=== PATIENT | female | born 1980 | race African-American/Black ===

== ENCOUNTER 2016-10-16 12:11 | Emergency (ER) | payer SELFPAY ==
[~2016-10-16] VITALS: Ht 170.2 cm; Wt 77.6 kg
[~2016-10-16 12:11] MED LIST: AZITHROMYCIN250 MG ORAL; BENADRYL ALLERG25 M1 PO; FLONASE ALLERG9.9 ML NS; HYDROCHLOROTH12.5 M2 ORAL; NITROFURANTOIN100 M2 ORAL
[2016-10-16] MEDS ORDERED: NKM (12:39)
[2016-10-16] MEDS ORDERED: DiphenhydrAMINE 50mg/ml Inj IVP ONE (13:00)
[2016-10-16] MEDS ORDERED: Metoclopramide 10mg/2ml Inj IVP ONE (13:00)
[2016-10-16] MEDS ORDERED: Thiamine HCl 100 MG in D5W 55 ML IVPB SCH (13:00)
[2016-10-16] MEDS ORDERED: Thiamine HCl 100mg/ml Inj ONE (13:12)
[2016-10-16 13:15] VITALS: BP 159/97
[2016-10-16 13:22] LABS: APPEARANCE,URINE CLOUDY; KETONES,URINE NEGATIVE (NEGATIVE); LEUKOCYTE ESTERASE ,URINE NEGATIVE (NEGATIVE); NITRITE,URINE NEGATIVE (NEGATIVE); PH,URINE 8 (4.5-8.0); PROTEIN,URINE 1+ (NEGATIVE); UROBILINOGEN,URINE NORMAL MG/DL (0.0-1.0)
[2016-10-16 13:23] LABS: BASOPHILS % (AUTO) 0.9 % (0.0-2.0); EOSINOPHILS % (AUTO) 0.9 % (0.0-3.0); MEAN CORPUSCULAR HEMOGLOBIN 30.9 PG (27.0-31.0); MEAN CORPUSCULAR HGB CONC 33.2 G/DL (32.0-36.0); MEAN CORPUSCULAR VOLUME 93 FL (80-99); MEAN PLATELET VOLUME 9.3 FL (6.5-10.1); MONOCYTES % (AUTO) 3.8 % (1.0-10.0); NEUTROPHILS % (AUTO) 77.3 % (45.0-75.0); PLATELET COUNT 248 K/UL (150-450); RED BLOOD COUNT 4.61 M/UL (4.20-5.40); RED CELL DISTRIBUTION WIDTH 11.1 % (11.6-14.8); WHITE BLOOD COUNT 8.2 K/UL (4.8-10.8)
[2016-10-16 13:41] LABS: ALANINE AMINOTRANSFERASE 10 U/L (3-33); ALBUMIN/GLOBULIN RATIO 1.4 (1.0-2.7); ANION GAP 19 (5-15); ASPARTATE AMINO TRANSFERASE 14 U/L (5-40); CALCIUM 9.2 mg/dL (8.6-10.2); CARBON DIOXIDE 23 mEQ/L (20-30); CHLORIDE 98 mEQ/L (98-107); CREATININE 0.7 mg/dL (0.5-0.9); GLOMERULAR FILTRATION RATE > 60 mL/min (>60); HEMOLYSIS 3; LIPASE 16 U/L (< 60); POTASSIUM 3.7 mEQ/L (3.4-4.9); SODIUM 140 mEQ/L (135-145); TOTAL PROTEIN 8.1 g/dL (6.6-8.7)
[2016-10-16 14:02] LABS: BACTERIA,URINE FEW /HPF; SQUAMOUS EPITHELIAL CELL,UR MODERATE /LPF (NONE/OCC); WBC,URINE 0-2 /HPF (0 - 2)
[2016-10-16 14:03] LABS: AMORPHOUS SEDIMENT,UR MANY /LPF
[2016-10-16] MEDS ORDERED: ZOFRAN ODT4 MG ORAL (14:20)
[2016-10-16] MEDS ORDERED: PEPCID20 MG ORAL (14:20)
[2016-10-16 15:15] VITALS: BP 118/76
--- NOTE | 2016-10-16 20:08 | Emergency Room Report ---
History of Present Illness General Chief Complaint: Vomiting Source: Patient Present Illness HPI Patient presents with vomiting and headache. Diffuse 9/10, pounding. Unable to keep down fluids. No medicine taken. Drank cocktails last night (not unusual for her). Might have vomited a scant amount of blood this am, now clear. Strange feeling in stomach. No fevers. This morning she felt so weak that she had difficulty walking. The patient said he had a headache like this before. It sounds most severe headache that she's ever had. She denies any lateralizing weakness, numbness. change in vision. She denies any sore throat, dyspnea, chest pain. Her periods are irregular and sparse because she's has an IUD. She does not believe she is . There is no abdominal pain per se but she does feel strange feeling in her stomach. No family history of brain bleeds. Patient not hypertensive. Allergies: Coded Allergies: No Known Allergies (Unverified , 06/15/14) Patient History Past Medical History: see triage record Social History: Reports: alcohol use, Denies: smoking Social History Narrative eusebia, brought by son Last Menstrual Period: unk, IUD Reviewed Nursing Documentation: PMH: Agreed, PSxH: Agreed Nursing Documentation-PMH Past Medical History: No History, Except For Hx Hypertension: Yes Hx Asthma: Yes Review of Systems All Other Systems: negative except mentioned in HPI Physical Exam Vital Signs Date Time Temp Pulse Resp B/P Pulse Ox O2 Delivery O2 Flow Rate FiO2 10/16/16 12:36 97.2 82 16 149/95 100 Room Air Sp02 EP Interpretation: reviewed, normal General Appearance: well appearing, no apparent distress, GCS 15 Head: normocephalic, atraumatic Eyes: bilateral eye PERRL, bilateral eye normal inspection ENT: moist mucus membranes Neck: full range of motion, supple Respiratory: lungs clear, normal breath sounds Cardiovascular #1: regular rate, rhythm Cardiovascular #2: 2+ radial (R) Gastrointestinal: normal inspection, normal bowel sounds, non tender, no mass, non-distended Musculoskeletal: back normal, gait/station normal, normal range of motion Neurologic: alert, oriented x3, motor strength/tone normal, DTRs symmetric, sensory intact, cerebellar normal, speech normal Skin: normal inspection, warm/dry Medical Decision Making Diagnostic Impression: Primary Impression: Headache Qualified Codes: R51 - Headache Additional Impression: vomiting ER Course The patient presents with headache and vomiting. Differential includes migraine , a cholesterol, electrolyte abnormality, subarachnoid bleeds, tension headache , amongst others. The patient feels generalized weakness there are no lateralizing findings. The patient does be treated with IV hydration, Zofran , thiamine and also will be given Reglan and Benadryl. She'll be observed and a repeat neurologic exam will be performed. If the patient is not improved a CT scan will be ordered. Labs essentially normal. Patient with 2-3/10 MCDONALD, feels much better. Tolerating PO fluids. Patient stable for outpatient observation and treatment. Laboratory Tests Test 10/16/16 13:05 White Blood Count 8.2 K/UL (4.8-10.8) Red Blood Count 4.61 M/UL (4.20-5.40) Hemoglobin 14.2 G/DL (12.0-16.0) Hematocrit 42.9 % (37.0-47.0) Mean Corpuscular Volume 93 FL (80-99) Mean Corpuscular Hemoglobin 30.9 PG (27.0-31.0) Mean Corpuscular Hemoglobin Concent 33.2 G/DL (32.0-36.0) Red Cell Distribution Width 11.1 % (11.6-14.8) L Platelet Count 248 K/UL (150-450) Mean Platelet Volume 9.3 FL (6.5-10.1) Neutrophils (%) (Auto) 77.3 % (45.0-75.0) H Lymphocytes (%) (Auto) 17.0 % (20.0-45.0) L Monocytes (%) (Auto) 3.8 % (1.0-10.0) Eosinophils (%) (Auto) 0.9 % (0.0-3.0) Basophils (%) (Auto) 0.9 % (0.0-2.0) Urine Color Yellow Urine Appearance Cloudy Urine pH 8 (4.5-8.0) Urine Specific [place] 1.010 (1.005-1.035) Urine Protein 1+ (NEGATIVE) H Urine Glucose (UA) Negative (NEGATIVE) Urine Ketones Negative (NEGATIVE) Urine Occult Blood 2+ (NEGATIVE) H Urine Nitrite Negative (NEGATIVE) Urine Bilirubin Negative (NEGATIVE) Urine Urobilinogen Normal MG/DL (0.0-1.0) Urine Leukocyte Esterase Negative (NEGATIVE) Urine RBC 2-4 /HPF (0 - 2) H Urine WBC 0-2 /HPF (0 - 2) Urine Squamous Epithelial Cells Moderate /LPF (NONE/OCC) H Urine Amorphous Sediment Many /LPF (NONE) H Urine Bacteria Few /HPF (NONE) Urine HCG, Qualitative Negative Sodium Level 140 mEQ/L (135-145) Potassium Level 3.7 mEQ/L (3.4-4.9) Chloride Level 98 mEQ/L (98-107) Carbon Dioxide Level 23 mEQ/L (20-30) Anion Gap 19 (5-15) H Blood Urea Nitrogen 8 mg/dL (7-23) Creatinine 0.7 mg/dL (0.5-0.9) Estimate Glomerular Filtration Rate > 60 mL/min (>60) Glucose Level 111 mg/dL (74-106) H Calcium Level 9.2 mg/dL (8.6-10.2) Total Bilirubin 0.4 mg/dL (0.0-1.2) Aspartate Amino Transferase (AST) 14 U/L (5-40) Alanine Aminotransferase (ALT) 10 U/L (3-33) Alkaline Phosphatase 67 U/L (35-104) Total Protein 8.1 g/dL (6.6-8.7) Albumin 4.8 g/dL (3.5-5.2) Globulin 3.3 g/dL Albumin/Globulin Ratio 1.4 (1.0-2.7) Lipase 16 U/L (< 60) Urine Opiates Screen Negative (NEGATIVE) Urine Barbiturates Screen Negative (NEGATIVE) Phencyclidine (PCP) Screen Negative (NEGATIVE) Urine Amphetamines Screen Negative (NEGATIVE) Urine Benzodiazepines Screen Negative (NEGATIVE) Urine Cocaine Screen Negative (NEGATIVE) Urine Marijuana (THC) Screen Positive (NEGATIVE) H Last Vital Signs Date Time Temp Pulse Resp B/P Pulse Ox O2 Delivery O2 Flow Rate FiO2 10/16/16 15:15 78 14 118/76 98 Room Air 10/16/16 13:15 97.5 Status: improved Reevaluation Impression Last Vital Signs Date Time Temp Pulse Resp B/P Pulse Ox O2 Delivery O2 Flow Rate FiO2 10/16/16 15:15 78 14 118/76 98 Room Air 10/16/16 13:15 97.5 Disposition: HOME, SELF-CARE Condition: Improved Scripts Famotidine (PEPCID) 20 Mg Tablet 20 MG ORAL DAILY, #14 TAB 0 Refills Prov: Jamar Kenny M.D. 10/16/16 Ondansetron Odt* (ZOFRAN ODT*) 4 Mg Tab.rapdis 4 MG ORAL Q8H Y for Nausea & Vomiting, #6 TAB 0 Refills Prov: Jamar Kenny M.D. 10/16/16 Departure Forms: Return to Work Return to Work in (Days): 1 Return to Work Date: Oct 17, 2016 Patient Instructions: Nausea and Vomiting, Adult Additional Instructions: Beware of any alcohol. No aspirin, advil, aleve, alkaselzer, peptobismol or alcohol. Tylenol and [place]. Jamar Kenny M.D. Oct 16, 2016 20:08
== END 2016-10-16 15:19 | disposition home or self-care (01) ==
LOC: EMR 12:55
DX: R51 Headache (principal); R11.10 Vomiting, unspecified; I10 Essential (primary) hypertension; J45.909 Unspecified asthma, uncomplicated; F10.10 Alcohol abuse, uncomplicated
CPT/HCPCS: 36415; 80053; 80300; 81003; 81025; 83690; 85025; 96360; 96361; 96374; 96375; 99284; J1200; J2405; J2765

== ENCOUNTER 2016-11-12 17:23 | Emergency (ER) | payer SELFPAY ==
[~2016-11-12] VITALS: Ht 170.2 cm; Wt 80.7 kg
[~2016-11-12 17:23] MED LIST changes: +NKM; +PEPCID20 MG ORAL; +ZOFRAN ODT4 MG ORAL
[2016-11-12 17:54] VITALS: BP 129/84
[2016-11-12] MEDS: DiphenhydrAMINE 50mg/ml Inj IM ONE ×2 (18:42→18:55)
[2016-11-12] MEDS: Metoclopramide 10mg/2ml Inj IM ONE ×2 (18:42→18:55)
[2016-11-12] MEDS: Ketorolac 60mg Inj IM ONE ×2 (18:42→18:56)
[2016-11-12] MEDS ORDERED: IBUPROFEN600 MG ORAL (19:05)
[2016-11-12 19:17] VITALS: BP 124/80
[2016-11-12 19:18] VITALS: BP 124/80
--- NOTE | 2016-11-12 20:47 | Emergency Room Report ---
History of Present Illness General Chief Complaint: General Complaint Source: Patient Present Illness [facility] The patient is a 35-year-old female presenting for possible hypertension and headache which began last night. Pain is described as an 8/10 dull ache to the temples of the head. Pain does not radiate. Pain is worse with touch and movement. The patient does admit to history of headaches and this feels similar. The patient also admits to increased stress over the past week. The patient states that she went to a [facility] to have her blood pressure checked in readings were 168 systolic. The patient states that she had been diagnosed with hypertension in the past but stopped taking her blood pressure medications one year prior. The patient does have a blood pressure machine at home and numbers are usually within normal limits. Patient denies any other symptoms including nausea, vomiting, fever, chills, dizziness, blurred vision, chest pain, shortness of breath, weakness, diaphoresis, neck pain or stiffness Allergies: Coded Allergies: No Known Allergies (Unverified , 06/15/14) Patient History Past Medical History: see triage record Pertinent Family History: none Last Menstrual Period: IUD Now: No : 5 Para: 3 Reviewed Nursing Documentation: PMH: Agreed, PSxH: Agreed Nursing Documentation-PMH Hx Hypertension: Yes Hx Asthma: Yes Review of Systems All Other Systems: negative except mentioned in HPI Physical Exam Vital Signs Date Time Temp Pulse Resp B/P Pulse Ox O2 Delivery O2 Flow Rate FiO2 11/12/16 17:42 99.5 85 16 129/84 100 Room Air Sp02 EP Interpretation: reviewed, normal General Appearance: no apparent distress, alert, GCS 15, non-toxic Head: normocephalic, atraumatic Eyes: bilateral eye PERRL, bilateral eye normal inspection ENT: hearing grossly normal, normal pharynx, no angioedema, normal voice Respiratory: chest non-tender, lungs clear, normal breath sounds, no wheezing, speaking full sentences Cardiovascular #1: regular rate, rhythm, no edema Musculoskeletal: back normal, gait/station normal, normal range of motion, non- tender Neurologic: alert, oriented x3, responsive, motor strength/tone normal, sensory intact, speech normal Psychiatric: judgement/insight normal, memory normal, mood/affect normal, no suicidal/homicidal ideation Skin: normal color, no rash, warm/dry, well hydrated Lymphatic: no adenopathy Medical Decision Making PA Attestation Dr. Porter is my supervising physician. Patient management was discussed with my supervising physician Diagnostic Impression: Primary Impression: Headache ER Course The patient is a 35-year-old female presenting for possible hypertension and headache which began last night Differential diagnoses include but not limited to Migraine, tension headache, essential HTN, HTN urgency vitals WNL. NAD PE: No apparent distress. A&Ox4 HEENT: PERRL. EOMI. Normal mentation. RRR. No MRG Lungs CTA bilat Skin is warm and dry, no rashes. Otherwise exam unremarkable. Pt is offered Toradol, reglan, Benadryl but refuses Blood pressure is rechecked and is slightly elevated. The patient is given Motrin for pain Patient will be discharged home with a prescription for Motrin and will followup with PMD. Patient is advised she needs to keep a blood pressure journal. ER precautions Last Vital Signs Date Time Temp Pulse Resp B/P Pulse Ox O2 Delivery O2 Flow Rate FiO2 11/12/16 19:18 80 18 124/80 99 Room Air 11/12/16 19:17 99.0 Status: improved Disposition: HOME, SELF-CARE Condition: Improved Scripts Ibuprofen* (MOTRIN*) 600 Mg Tablet 600 MG ORAL Q8H Y for For Pain, #30 TAB 0 Refills Prov: BALDEV ESTEVEZ 11/12/16 Referrals: NOT CHOSEN IPA/,REFERRING (PCP) Patient Instructions: General Headache Without Cause Additional Instructions: I discussed my findings with the patient. All questions and concerns have been answered. Treatment and medication compliance have been addressed. I advised the patient that they need to follow up with PMD in 3-5 days. Return to ED if symptoms worsen, new symptoms arise, or if needed for any reason. Patient verbalized understanding of discharge instructions. The patient will keep a blood pressure journal as discussed and will see here primary doctor as soon as possible. BALDEV ESTEVEZ Nov 12, 2016 20:47
== END 2016-11-12 19:22 | disposition home or self-care (01) ==
LOC: EMR 18:15
DX: R51 Headache (principal); I10 Essential (primary) hypertension; Z97.5 Presence of (intrauterine) contraceptive device; J45.909 Unspecified asthma, uncomplicated
CPT/HCPCS: 99283

== ENCOUNTER 2017-05-04 16:06 | Emergency (ER) | payer SELFPAY ==
[~2017-05-04] VITALS: Ht 170.2 cm; Wt 74.4 kg
[~2017-05-04 16:06] MED LIST changes: +IBUPROFEN600 MG ORAL
[2017-05-04 16:15] VITALS: BP 201/116
[2017-05-04] MEDS ORDERED: Penicillin Vk 250mg tab ORAL ONE (16:30)
[2017-05-04] MEDS ORDERED: Morphine Sulfate 4mg/ml Inj IM ONE (16:30)
[2017-05-04] MEDS ORDERED: TRAMADOL HCL50 MG ORAL (16:48)
[2017-05-04] MEDS ORDERED: PENICILLIN V P250 MG PO (16:48)
[2017-05-04 16:55] VITALS: BP 146/85
--- NOTE | 2017-05-04 17:08 | Emergency Room Report ---
History of Present Illness General Chief Complaint: Toothache Source: Patient Present Illness HPI The patient is a 36-year-old female presenting for dental pain. She states that she first noticed pain around the left lower teeth one week prior which has been increasing and is now a 10 out of 10 dull ache. Worse with touch. Pain does not radiate. She states that last dental appointment was one year prior. She denies any other symptoms including N, V, F, chills, rash, MCDONALD, blurred vision, sore throat Allergies: Coded Allergies: No Known Allergies (Unverified , 06/15/14) Patient History Past Medical History: see triage record Pertinent Family History: none Last Menstrual Period: 04/27/17 Now: No Reviewed Nursing Documentation: PMH: Agreed, PSxH: Agreed Nursing Documentation-PMH Hx Hypertension: Yes Hx Asthma: Yes Review of Systems All Other Systems: negative except mentioned in HPI Physical Exam Vital Signs Date Time Temp Pulse Resp B/P (MAP) Pulse Ox O2 Delivery O2 Flow Rate FiO2 05/04/17 16:15 99.5 76 15 201/116 95 Room Air Sp02 EP Interpretation: reviewed, normal General Appearance: no apparent distress, alert, GCS 15, non-toxic Head: normocephalic, atraumatic Eyes: bilateral eye normal inspection, bilateral eye PERRL ENT: hearing grossly normal, normal pharynx, no angioedema, normal voice, other - TTP over the L molar Neck: full range of motion, supple/symm/no masses Musculoskeletal: back normal, gait/station normal, normal range of motion, non- tender Neurologic: alert, oriented x3, responsive, motor strength/tone normal, sensory intact, speech normal Psychiatric: judgement/insight normal, memory normal, mood/affect normal, no suicidal/homicidal ideation Skin: normal color, no rash, warm/dry, well hydrated Lymphatic: no adenopathy Medical Decision Making PA Attestation Dr. may is my supervising physician. Patient management was discussed with my supervising physician Diagnostic Impression: Primary Impression: Dental infection ER Course The patient is a 36-year-old female presenting for dental pain. Diagnoses considered but not limited to: Dental caries, dental infection/abscess , gingivitis, [employer], among others PE: afebrile. NAD HEENT: No facial edema. Diffuse poor dentition with obvious caries. TTP over the L lower molar. No abscess. No fluctuance. No TTP over the mastoid. The patient is given antibiotics and pain medication and will be DC'ed with the same. ER precautions given. She will FU with dentist. Last Vital Signs Date Time Temp Pulse Resp B/P (MAP) Pulse Ox O2 Delivery O2 Flow Rate FiO2 05/04/17 16:55 99.5 54 16 146/85 98 Room Air Status: improved Disposition: HOME, SELF-CARE Condition: Improved Scripts Penicillin V Potassium (Penicillin V Potassium) 250 Mg Tablet 250 MG PO Q6H, #28 TAB 0 Refills Prov: BALDEV ESTEVEZ 05/04/17 Tramadol Hcl* (ULTRAM*) 50 Mg Tablet 50 MG ORAL Q6H Y for For Pain, #10 TAB 0 Refills Prov: BALDEV ESTEVEZ. 05/04/17 Patient Instructions: Dental Pain Additional Instructions: I discussed my findings with the patient. All questions and concerns have been answered. Treatment and medication compliance have been addressed. I advised the patient that they need to follow up with PMD in 3-5 days. Return to ED if symptoms worsen, new symptoms arise, or if needed for any reason. Patient verbalized understanding of discharge instructions. The patient will follow up with dentist as soon as possible BALDEV ESTEVEZ May 04, 2017 17:08
== END 2017-05-04 16:55 | disposition home or self-care (01) ==
LOC: EMR 16:20
DX: K04.7 Periapical abscess without sinus (principal); J45.909 Unspecified asthma, uncomplicated; I10 Essential (primary) hypertension
CPT/HCPCS: 96372; 99284; J2270; C9399

== ENCOUNTER 2017-05-07 16:09 | Emergency (ER) | payer SELFPAY ==
[~2017-05-07] VITALS: Ht 170.2 cm; Wt 70.3 kg
[~2017-05-07 16:09] MED LIST changes: +PENICILLIN V P250 MG PO; +TRAMADOL HCL50 MG ORAL
[2017-05-07] MEDS ORDERED: Ketorolac 60mg Inj IM ONE (16:30)
[2017-05-07] MEDS ORDERED: Norco 5mg/325mg tab ORAL ONE (16:30)
[2017-05-07] MEDS ORDERED: TRAMADOL HCL50 MG ORAL (16:58)
[2017-05-07 17:03] VITALS: BP 149/88
--- NOTE | 2017-05-07 18:49 | Emergency Room Report ---
History of Present Illness General Chief Complaint: Toothache Present Illness HPI The patient is a 36-year-old female presenting for dental pain. She was seen in this emergency department this prior for the same complaint. She was diagnosed with dental infection and given amoxicillin as well as tramadol. She states that the tramadol ran out and the pain has returned. She states that she has an appointment to see dentist tomorrow. Pain is a 10 out of 10 dull ache to the left lower jaw and does not radiate. Worse with chewing. She denies any other symptoms including nausea, vomiting, fever, chills Allergies: Coded Allergies: No Known Allergies (Unverified , 06/15/14) Patient History Past Medical History: see triage record Pertinent Family History: none Reviewed Nursing Documentation: PMH: Agreed, PSxH: Agreed Nursing Documentation-PMH Hx Hypertension: Yes Hx Asthma: Yes Review of Systems All Other Systems: negative except mentioned in HPI Physical Exam Vital Signs Date Time Temp Pulse Resp B/P (MAP) Pulse Ox O2 Delivery O2 Flow Rate FiO2 05/07/17 16:15 98.1 83 20 170/90 99 Room Air Sp02 EP Interpretation: reviewed, normal General Appearance: no apparent distress, alert, GCS 15, non-toxic Head: normocephalic, atraumatic Eyes: bilateral eye normal inspection, bilateral eye PERRL ENT: hearing grossly normal, normal pharynx, no angioedema, normal voice, uvula midline, other - L molar TTP Neck: full range of motion, supple/symm/no masses Respiratory: chest non-tender, lungs clear, normal breath sounds, speaking full sentences Musculoskeletal: back normal, gait/station normal, normal range of motion, non- tender Neurologic: alert, oriented x3, responsive, motor strength/tone normal, sensory intact, speech normal Psychiatric: judgement/insight normal, memory normal, mood/affect normal, no suicidal/homicidal ideation Skin: normal color, no rash, warm/dry, well hydrated Lymphatic: no adenopathy Medical Decision Making PA Attestation Dr. Ball is my supervising physician. Patient management was discussed with my supervising physician Diagnostic Impression: Primary Impression: Pain, dental ER Course The patient is a 36-year-old female presenting for dental pain. Diagnoses considered but not limited to: Dental arnie, dental abscess, toothache , gingivitis Physical exam reveals tenderness to palpation over the left molar as before. No active signs of infection. The patient is given limited prescription for tramadol and needs to followup with dentist tomorrow as she said. ER precautions are given Last Vital Signs Date Time Temp Pulse Resp B/P (MAP) Pulse Ox O2 Delivery O2 Flow Rate FiO2 05/07/17 17:03 98.1 83 20 149/88 99 Room Air Status: improved Disposition: HOME, SELF-CARE Condition: Improved Scripts Tramadol Hcl* (ULTRAM*) 50 Mg Tablet 50 MG ORAL Q6H Y for For Pain, #10 TAB 0 Refills Prov: BALDEV ESTEVEZ 05/07/17 Referrals: NOT CHOSEN IPA/,REFERRING (PCP) Patient Instructions: Dental Pain Additional Instructions: I discussed my findings with the patient. All questions and concerns have been answered. Treatment and medication compliance have been addressed. The patient has appointment with dentist tomorrow. Return to ED if symptoms worsen, new symptoms arise, or if needed for any reason. Patient verbalized understanding of discharge instructions. BALDVE ESTEVEZ May 07, 2017 18:49
== END 2017-05-07 17:04 | disposition home or self-care (01) ==
LOC: EMR 16:45
DX: K08.89 Other specified disorders of teeth and supporting structures (principal); I10 Essential (primary) hypertension; J45.909 Unspecified asthma, uncomplicated
CPT/HCPCS: 96372; 99284

== ENCOUNTER 2017-05-12 21:04 | Emergency (ER) | payer SELFPAY ==
[~2017-05-12] VITALS: Ht 170.2 cm; Wt 73.5 kg
[2017-05-12 21:30] VITALS: BP 180/98
[2017-05-12] MEDS ORDERED: Lidocaine 1% Plain 30 ml INJ ONE (21:45)
[2017-05-12] MEDS ORDERED: HYDROCODON-ACE1 EA15 ORAL (21:59)
[2017-05-12] MEDS ORDERED: Norco 5mg/325mg tab ORAL ONE (22:00)
--- NOTE | 2017-05-12 22:00 | Emergency Room Report ---
History of Present Illness General Chief Complaint: Toothache Source: Patient Present Illness HPI This is a 36-year-old female with poor dentition. She presents with chief complaint of dental pain and headache. She was here twice for the same thing. She saw her dentist who placed her on Tylenol and clindamycin. She was referred to an oral surgeon. Her appointment won't be until next . She denies any fever or chills. Pain is 9/10. Localized to the left upper cheek. Radiate to her head and face. No nausea no vomiting. Worse with eating. Allergies: Coded Allergies: No Known Allergies (Unverified , 06/15/14) Patient History Past Medical History: see triage record, old chart reviewed Past Surgical History: other Pertinent Family History: none Social History: Denies: smoking Now: No Immunizations: other Reviewed Nursing Documentation: PMH: Agreed, PSxH: Agreed Nursing Documentation-PMH Past Medical History: No History, Except For Hx Hypertension: Yes Hx Asthma: Yes Review of Systems Eye: Denies: eye pain, blurred vision ENT: Denies: ear pain, nose congestion, throat swelling Respiratory: Denies: cough, shortness of breath Cardiovascular: Denies: chest pain, palpitations Gastrointestinal: Denies: abdominal pain, diarrhea, nausea, vomiting Musculoskeletal: Denies: back pain, joint pain Skin: Denies: rash Neurological: Denies: headache, numbness Endocrine: Denies: increased thirst, increased urine Hematologic/Lymphatic: Denies: easy bruising All Other Systems: negative except mentioned in HPI Physical Exam Vital Signs Date Time Temp Pulse Resp B/P (MAP) Pulse Ox O2 Delivery O2 Flow Rate FiO2 05/12/17 21:21 98.4 93 22 180/98 99 Room Air vitals with high blood pressure Sp02 EP Interpretation: reviewed, normal General Appearance: well appearing, no apparent distress, alert Head: normocephalic, atraumatic Eyes: bilateral eye PERRL, bilateral eye EOMI ENT: hearing grossly normal, other - Poor dentition. Her molars are decayed to the nubs. No abscess. Percussive tenderness. Neck: full range of motion, supple, no meningismus Respiratory: chest non-tender, lungs clear, normal breath sounds Cardiovascular #1: regular rate, rhythm, no murmur Gastrointestinal: normal bowel sounds, non tender, no mass, no organomegaly, no bruit, non-distended Musculoskeletal: back normal, gait/station normal, normal range of motion Psychiatric: mood/affect normal Skin: warm/dry Medical Decision Making Diagnostic Impression: Primary Impression: Toothache Additional Impression: Dental abscess ER Course Patient presents with dental pain. No evidence of deep abscess that can be I& D. No facial swelling. We'll discharge home. Last Vital Signs Date Time Temp Pulse Resp B/P (MAP) Pulse Ox O2 Delivery O2 Flow Rate FiO2 05/12/17 21:21 98.4 93 22 180/98 99 Room Air Status: improved Disposition: HOME, SELF-CARE Condition: Stable Scripts Hydrocodone/Acetaminophen 5-325* (HYDROCODONE/ACETAMINOPHEN 5-325*) 1 Each Tablet 1 TAB ORAL Q6H Y for For Pain, #30 TAB 0 Refills Prov: GABY HUMPHREY M.D. 05/12/17 Patient Instructions: Dental Pain Additional Instructions: Followup with your surgeon as scheduled. Stop the Tylenol if you are taking [place]. Return for facial swelling or if symptom worsen. GABY HUMPHREY M.D. May 12, 2017 22:00
[2017-05-12 22:12] VITALS: BP 156/92
[2017-05-13] MEDS ORDERED: LIDOCAINE VISC100 ML ORAL (17:25)
[2017-05-13] MEDS ORDERED: HYDROCHLOROTH12.5 MG ORAL (17:25)
[2017-05-13] MEDS ORDERED: PERCOCET 7.5-31 EACH ORAL (17:25)
== END 2017-05-12 22:12 | disposition home or self-care (01) ==
LOC: EMR 21:30
DX: K08.89 Other specified disorders of teeth and supporting structures (principal); K04.7 Periapical abscess without sinus; I10 Essential (primary) hypertension; J45.909 Unspecified asthma, uncomplicated
CPT/HCPCS: 99284; J2001

== ENCOUNTER 2017-05-13 15:47 | Emergency (ER) | payer SELFPAY ==
[~2017-05-13] VITALS: Ht 170.2 cm; Wt 73.5 kg
[~2017-05-13 15:47] MED LIST changes: +HYDROCODON-ACE1 EA15 ORAL
[2017-05-13 16:25] VITALS: BP 178/112
--- NOTE | 2017-05-13 17:24 | Emergency Room Report ---
History of Present Illness General Chief Complaint: Toothache Source: Patient Present Illness HPI 36-year-old female presents to the emergency department complaining of 10 out of 10 in severity pain in the upper left jaw in addition to swelling x 1.5 weeks. Pt states she was previously seen by PA in the ED and rx'd Tramadol and then she followed up with her dentist who told her she will need to make an appt. with oral surgeon for tooth repair. pt. states she is unable to get seen by the oral surgeon until the end of the week. pt. states her pain continues. denies fevers, chills, erythema, pus, MCDONALD. pt. reports also being out of her HCTZ and needs a medication refill. reports she has not had her HTN medication in 3 days. Denies CP, Palpitations, LOC, AMS, dizziness, Changes in Vision, Sensation, paresthesias, or a sudden severe headache. Allergies: Coded Allergies: No Known Allergies (Unverified , 06/15/14) Patient History Past Medical History: see triage record Past Surgical History: none Pertinent Family History: none Last Menstrual Period: "IUD" Now: No Immunizations: UTD Reviewed Nursing Documentation: PMH: Agreed, PSxH: Agreed Nursing Documentation-PMH Hx Hypertension: Yes Hx Asthma: Yes Review of Systems All Other Systems: negative except mentioned in HPI Physical Exam Vital Signs Date Time Temp Pulse Resp B/P (MAP) Pulse Ox O2 Delivery O2 Flow Rate FiO2 05/13/17 16:20 98.4 73 16 199/111 100 Room Air Sp02 EP Interpretation: reviewed, normal General Appearance: alert, GCS 15, non-toxic, moderate distress Head: normocephalic, atraumatic Eyes: bilateral eye normal inspection, bilateral eye PERRL ENT: hearing grossly normal, normal pharynx, no angioedema, normal voice, other - Tooth no. 13 is cracked with significant tenderness to percussion, no peridental erythema, no palpable fluctuance noted. Neck: full range of motion, supple/symm/no masses Respiratory: chest non-tender, lungs clear, normal breath sounds, speaking full sentences Cardiovascular #1: regular rate, rhythm, no edema Cardiovascular #2: 2+ carotid (R), 2+ carotid (L), 2+ radial (R), 2+ radial (L) , 2+ dorsalis pedis (R), 2+ dorsalis pedis (L) Gastrointestinal: normal bowel sounds, non tender, soft, no guarding, no rebound Rectal: deferred Genitourinary: normal inspection, no CVA tenderness Musculoskeletal: back normal, gait/station normal, normal range of motion, non- tender, no calf tenderness Neurologic: alert, oriented x3, responsive, motor strength/tone normal, sensory intact, speech normal Psychiatric: judgement/insight normal, memory normal, mood/affect normal, no suicidal/homicidal ideation Reflexes: 4+ bicep (R), 4+ bicep (L), 4+ tricep (R), 4+ tricep (L), 4+ knee (R) , 4+ knee (L) Skin: normal color, no rash, warm/dry, well hydrated Lymphatic: no adenopathy Medical Decision Making PA Attestation Dr. Montano is my supervising Physician whom patient management has been discussed with. Diagnostic Impression: Primary Impression: Pain, dental Additional Impressions: Medication refill Acute pulpitis ER Course 36-year-old female presents to the emergency department complaining of 10 out of 10 in severity pain in the upper left jaw in addition to swelling x 1.5 weeks. Pt states she was previously seen by PA in the ED and rx'd Tramadol and then she followed up with her dentist who told her she will need to make an appt. with oral surgeon for tooth repair. pt. states she is unable to get seen by the oral surgeon until the end of the week. pt. states her pain continues. denies fevers, chills, erythema, pus, MCDONALD. pt. reports also being out of her HCTZ and needs a medication refill. reports she has not had her HTN medication in 3 days. Denies CP, Palpitations, LOC, AMS, dizziness, Changes in Vision, Sensation, paresthesias, or a sudden severe headache. Ddx considered but are not limited to cellulitis, dental abscess, orbital cellulitis, d/l tooth, dental pain. trigeminal neuralgia Vital signs: are WNL, pt. is afebrile H&PE are most consistent with dental pain due to compromised dentition. Tooth no. 13 is cracked with significant tenderness to percussion, no peridental erythema, no palpable fluctuance noted. - no evidence of infection, no abscess at this time. ORDERS: none required at this time, the diagnosis is clinical ED INTERVENTIONS: -Morphine IM -Hctz PO -D/W pt. that ultimate treatment for her condition is under dental profession. Gave pt. list of free/reduced cost dental clinics to follow up at if she requires a second opinion or longer management of her dental condition. DISCHARGE: At this time pt. is stable for d/c to home. Will provide printed patient care instructions, and any necessary prescriptions. Care plan and follow up instructions have been discussed with the patient prior to discharge. Last Vital Signs Date Time Temp Pulse Resp B/P (MAP) Pulse Ox O2 Delivery O2 Flow Rate FiO2 05/13/17 16:20 98.4 73 16 199/111 100 Room Air Disposition: HOME, SELF-CARE Condition: Stable Scripts Lidocaine HCl 2% Viscous (Lidocaine HCl 2% Viscous) 100 Ml Solution 2 ML ORAL QID, #100 ML Prov: Adrianna Burkett 05/13/17 Oxycodone Hcl/Acetaminophen 7.5-325 Mg (PERCOCET 7.5-325 MG TABLET) 1 Each Tablet 1 TAB ORAL Q6H Y for For Pain, #12 TAB 0 Refills Prov: Adrianna Burkett 05/13/17 Hydrochlorothiazide* (HYDROCHLOROTHIAZIDE*) 12.5 Mg Tablet 12.5 MG ORAL DAILY for 30 Days, #30 TAB Prov: Adrianna Burkett 05/13/17 Patient Instructions: Dental Pain Additional Instructions: Take medications as directed. Follow up with a DENTIST in 2 days, even if your symptoms have resolved. * * --Please review list of DENTAL clinics, if you do not already have a DENTIST Return sooner to ED if new symptoms occur, or current symptoms become worse. Do not drink alcohol, drive, or operate heavy machinery while taking Percocet as this may cause drowsiness. - Please note that this Emergency Department Report was dictated using [employer] chemist technology software, occasionally this can lead to erroneous entry secondary to interpretation by the dictation equipment. Adrianna Burkett May 13, 2017 17:24
[2017-05-13] MEDS ORDERED: LIDOCAINE VISC100 ML ORAL (17:25)
[2017-05-13] MEDS ORDERED: PERCOCET 7.5-31 EACH ORAL (17:25)
[2017-05-13] MEDS ORDERED: HYDROCHLOROTH12.5 MG ORAL (17:25)
[2017-05-13] MEDS ORDERED: Morphine Sulfate 4mg/ml Inj IM ONE (17:30)
[2017-05-13 18:25] VITALS: BP 165/94
[2017-05-13 19:00] VITALS: BP 161/97
== END 2017-05-13 19:00 | disposition home or self-care (01) ==
LOC: EMR 17:27
DX: K08.89 Other specified disorders of teeth and supporting structures (principal); Z76.0 Encounter for issue of repeat prescription; K04.01 Reversible pulpitis; I10 Essential (primary) hypertension; K03.81 Cracked tooth
CPT/HCPCS: 96372; 99284; J2270

== ENCOUNTER 2018-01-06 11:07 | Emergency (ER) | payer SELFPAY ==
[~2018-01-06] VITALS: Ht 170.2 cm; Wt 77.1 kg
[~2018-01-06 11:07] MED LIST changes: +HYDROCHLOROTH12.5 MG ORAL; +LIDOCAINE VISC100 ML ORAL; +PERCOCET 7.5-31 EACH ORAL
[2018-01-06 11:27] VITALS: BP 138/85
--- NOTE | 2018-01-06 11:40 | Emergency Room Report ---
History of Present Illness General Chief Complaint: Back Pain-No Injury Source: Patient Present Illness HPI Patient presents with lower back pain. It started yesterday while she was going to [facility]. She stated she was sitting in the car and her back started to hurt and when she tried to get out, it was severe and she had trouble getting out of the car. She has a history of having back pain 18 years ago after having her son. She denies any fevers, chills, saddle numbness, incontinence. She's not taking blood thinners and has no oncologic problems. She took Motrin 600 mg and this did not help yesterday. The pain is severe (06/04) feels like at 300 pound man on her lower back. Does not radiate down her legs. No trauma. No cough, URI, chest pain, rashes, extremity pain. She has an IUD. Denies pelvic pain or discharge. No dysuria. 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 Last Menstrual Period: 12/20/17 Now: No Reviewed Nursing Documentation: PMH: Agreed; PSxH: Agreed Nursing Documentation-PMH Past Medical History: No History, Except For Hx Hypertension: Yes Hx Asthma: Yes Review of Systems All Other Systems: negative except mentioned in HPI Physical Exam Vital Signs Date Time Temp Pulse Resp B/P (MAP) Pulse Ox O2 Delivery O2 Flow Rate FiO2 01/06/18 11:17 97.7 74 18 138/85 98 Room Air 97.7 Sp02 EP Interpretation: reviewed, normal General Appearance: well appearing, alert, GCS 15, mild distress - unable to sit on gurney Head: normocephalic Eyes: bilateral eye normal inspection, bilateral eye PERRL ENT: moist mucus membranes Neck: supple Respiratory: lungs clear, normal breath sounds Cardiovascular #1: regular rate, rhythm Cardiovascular #2: 2+ radial (R) Gastrointestinal: normal inspection, normal bowel sounds, non tender, no mass, non-distended Genitourinary: no CVA tenderness Musculoskeletal: gait/station normal, normal range of motion, tender - lumbar area, muscle spasm without bone tenderness. Bends at hips without increased pain (more pain when tries to lay down or sit) Neurologic: alert, oriented x3, motor strength/tone normal, DTRs symmetric, sensory intact, cerebellar normal, speech normal Psychiatric: mood/affect normal Reflexes: 2+ knee (R), 2+ knee (L), 2+ ankle (R), 2+ ankle (L) Skin: normal inspection, warm/dry Medical Decision Making Diagnostic Impression: Primary Impression: Lumbar strain Qualified Codes: S39.012A - Strain of muscle, fascia and tendon of lower back , initial encounter ER Course Patient presents with severe low back pain. DDx: strain, spasm, herniation, UTI amongst others. No evidence of sciatica. Evaluation with UA and lumbar spine films. Treatment with toradol, percocet and flexeril. No red flag symptoms. UA negative. LS films, no sig disease (IUD). CBC normal ESR normal. K slightly low. Still 7/10 pain. Treated with IV analgesia. Improved and able to rest, sleep and stand. Patient stable for outpatient observation and treatment. Laboratory Tests Test 01/06/18 11:40 01/06/18 12:00 Urine Color Yellow Urine Appearance Clear Urine pH 6 (4.5-8.0) Urine Specific [place] 1.020 (1.005-1.035) Urine Protein 1+ (NEGATIVE) H Urine Glucose (UA) Negative (NEGATIVE) Urine Ketones Negative (NEGATIVE) Urine Occult Blood 4+ (NEGATIVE) H Urine Nitrite Negative (NEGATIVE) Urine Bilirubin Negative (NEGATIVE) Urine Urobilinogen Normal MG/DL (0.0-1.0) Urine Leukocyte Esterase 1+ (NEGATIVE) H Urine RBC 2-4 /HPF (0 - 2) H Urine WBC 0-2 /HPF (0 - 2) Urine Squamous Epithelial Cells Occasional /LPF Urine Bacteria Few /HPF (NONE) Urine Mucus Few /LPF (NONE/OCC) H Urine HCG, Qualitative Negative (NEGATIVE) White Blood Count 5.8 K/UL (4.8-10.8) Red Blood Count 4.38 M/UL (4.20-5.40) Hemoglobin 13.6 G/DL (12.0-16.0) Hematocrit 41.4 % (37.0-47.0) Mean Corpuscular Volume 95 FL (80-99) Mean Corpuscular Hemoglobin 31.0 PG (27.0-31.0) Mean Corpuscular Hemoglobin Concent 32.8 G/DL (32.0-36.0) Red Cell Distribution Width 11.2 % (11.6-14.8) L Platelet Count 221 K/UL (150-450) Mean Platelet Volume 10.1 FL (6.5-10.1) Neutrophils (%) (Auto) 42.3 % (45.0-75.0) L Lymphocytes (%) (Auto) 34.1 % (20.0-45.0) Monocytes (%) (Auto) 9.7 % (1.0-10.0) Eosinophils (%) (Auto) 12.5 % (0.0-3.0) H Basophils (%) (Auto) 1.4 % (0.0-2.0) Erythrocyte Sedimentation Rate 16 MM/HR (0-20) Prothrombin Time 10.2 SEC (9.30-11.50) Prothrombin Time INR 1.0 (0.9-1.1) PTT 28 SEC (23-33) Sodium Level 140 MMOL/L (136-145) Potassium Level 3.3 MMOL/L (3.5-5.1) L Chloride Level 103 MMOL/L (98-107) Carbon Dioxide Level 32 MMOL/L (21-32) Anion Gap 6 mmol/L (5-15) Blood Urea Nitrogen 15 mg/dL (7-18) Creatinine 0.9 MG/DL (0.55-1.30) Estimate Glomerular Filtration Rate > 60 mL/min (>60) Glucose Level 107 MG/DL (74-106) H Calcium Level 8.9 MG/DL (8.5-10.1) Total Bilirubin 0.5 MG/DL (0.2-1.0) Aspartate Amino Transferase (AST) 15 U/L (15-37) Alanine Aminotransferase (ALT) 22 U/L (12-78) Alkaline Phosphatase 78 U/L (46-116) Total Protein 8.4 G/DL (6.4-8.2) H Albumin 4.1 G/DL (3.4-5.0) Globulin 4.3 g/dL Albumin/Globulin Ratio 1.0 (1.0-2.7) Other X-Ray Diagnostic Results Other X-Ray Diagnostic Results : X-Ray ordered: LS spine # of Views/Limited Vs Complete: 4 View Indication: Pain Interpretation: no dislocation, no soft tissue swelling, no fractures, other - IUD Impression: No acute disease Electronically Signed by: Jamar Kenny MD Last Vital Signs Date Time Temp Pulse Resp B/P (MAP) Pulse Ox O2 Delivery O2 Flow Rate FiO2 01/06/18 14:34 98.0 81 16 129/81 99 Room Air 97.7 Status: improved Disposition: HOME, SELF-CARE Condition: Improved Scripts Methocarbamol* (ROBAXIN*) 500 Mg Tablet 500 MG PO TID, #12 TAB 0 Refills Prov: Jamar Kenny M.D. 01/06/18 Ibuprofen* (MOTRIN*) 600 Mg Tablet 600 MG ORAL Q6H PRN for For Pain, #20 TAB Prov: Jamar Kenny M.D. 01/06/18 Hydrocodone Bit/Acetaminophen 5-325* (NORCO 5-325*) 1 Each Tablet 1 TAB ORAL Q6H PRN for For Pain, #16 TAB 0 Refills Prov: Jamar Kenny M.D. 01/06/18 Referrals: NOT CHOSEN YI/,REFERRING (PCP) Jamar Kenny M.D. January 06, 2018 11:40
[2018-01-06] MEDS ORDERED: Ketorolac 30mg Inj IV ONE (11:45)
[2018-01-06] MEDS ORDERED: oxyCODONE HCL/Acetaminophen 5/325mg PO ONE (11:45)
[2018-01-06] MEDS ORDERED: Cyclobenzaprine 10mg Tab ORAL ONE (11:45)
[2018-01-06 12:00] LABS: APPEARANCE,URINE CLEAR; BILIRUBIN, URINE NEGATIVE (NEGATIVE); GLUCOSE, URINE (UA) NEGATIVE (NEGATIVE); KETONES,URINE NEGATIVE (NEGATIVE); LEUKOCYTE ESTERASE ,URINE 1+ (NEGATIVE); NITRITE,URINE NEGATIVE (NEGATIVE); PH,URINE 6 (4.5-8.0); PROTEIN,URINE 1+ (NEGATIVE); UROBILINOGEN,URINE NORMAL MG/DL (0.0-1.0)
[2018-01-06 12:01] LABS: COLOR,URINE YELLOW
--- NOTE | 2018-01-06 12:51 | Diagnostic Imaging Report ---
Indication: Pain Technique: XRAY L Spine [facility] Comparison: None Findings: There is transitional anatomy with 6 nonrib-bearing lumbar-type vertebral bodies, assuming 12 paired ribs. Lumbar lordosis is maintained. There is no evidence to suggest spondylolisthesis. No evidence of acute fracture. There is mild degenerative change with disc space narrowing at the lower lumbosacral spine. Bowel gas pattern is unremarkable. A likely intrauterine device is visualized. IMPRESSION: No evidence of acute fracture or traumatic malalignment. Transitional lumbosacral anatomy.
[2018-01-06 13:00] LABS: BASOPHILS % (AUTO) 1.4 % (0.0-2.0); EOSINOPHILS % (AUTO) 12.5 % (0.0-3.0); HEMATOCRIT 41.4 % (37.0-47.0); HEMOGLOBIN 13.6 G/DL (12.0-16.0); LYMPHOCYTES % (AUTO) 34.1 % (20.0-45.0); MEAN CORPUSCULAR VOLUME 95 FL (80-99); MONOCYTES % (AUTO) 9.7 % (1.0-10.0); NEUTROPHILS % (AUTO) 42.3 % (45.0-75.0); PLATELET COUNT 221 K/UL (150-450); RED BLOOD COUNT 4.38 M/UL (4.20-5.40); RED CELL DISTRIBUTION WIDTH 11.2 % (11.6-14.8); WHITE BLOOD COUNT 5.8 K/UL (4.8-10.8)
[2018-01-06 13:06] LABS: ANION GAP 6 mmol/L (5-15); BLOOD UREA NITROGEN 15 mg/dL (7-18); CALCIUM 8.9 MG/DL (8.5-10.1); CARBON DIOXIDE 32 MMOL/L (21-32); CHLORIDE 103 MMOL/L (98-107); CREATININE 0.9 MG/DL (0.55-1.30); POTASSIUM 3.3 MMOL/L (3.5-5.1); SODIUM 140 MMOL/L (136-145)
[2018-01-06 13:11] LABS: ALANINE AMINOTRANSFERASE 22 U/L (12-78); ALBUMIN 4.1 G/DL (3.4-5.0); ALKALINE PHOSPHATASE 78 U/L (46-116); ASPARTATE AMINO TRANSFERASE 15 U/L (15-37); BILIRUBIN,TOTAL 0.5 MG/DL (0.2-1.0)
[2018-01-06] MEDS ORDERED: fentaNYL 100 mcg/2 mL IV ONE (13:45)
[2018-01-06] MEDS ORDERED: NORCO 5-325 TA1 EACH ORAL (14:27)
[2018-01-06] MEDS ORDERED: ROBAXIN500 MG PO (14:27)
[2018-01-06] MEDS ORDERED: IBUPROFEN600 MG ORAL (14:27)
[2018-01-06 14:34] VITALS: BP 129/81
== END 2018-01-06 14:52 | disposition home or self-care (01) ==
LOC: EMR 11:36
DX: S39.012A Strain of muscle, fascia and tendon of lower back, initial encounter (principal); I10 Essential (primary) hypertension; J45.909 Unspecified asthma, uncomplicated; X58.XXXA Exposure to other specified factors, initial encounter; Y92.810 Car as the place of occurrence of the external cause
CPT/HCPCS: 36415; 72020; 80053; 81001; 81025; 85025; 85610; 85651; 85730; 96374; 96375; 99284; J1885; J2405; J3010

== ENCOUNTER 2018-01-11 13:21 | Emergency (ER) | payer SELFPAY ==
[~2018-01-11] VITALS: Ht 170.2 cm; Wt 77.6 kg
[~2018-01-11 13:21] MED LIST changes: +NORCO 5-325 TA1 EACH ORAL; +ROBAXIN500 MG PO
[2018-01-11 13:35] VITALS: BP 126/81
[2018-01-11] MEDS ORDERED: NORCO 5-325 TA1 EACH ORAL (14:09)
[2018-01-11] MEDS ORDERED: LIDOCAINE700 M1 TP (14:09)
[2018-01-11] MEDS ORDERED: Ketorolac 60mg Inj IM ONE (14:15)
[2018-01-11 14:30] VITALS: BP 126/81
--- NOTE | 2018-01-11 14:51 | Emergency Room Report ---
History of Present Illness General Chief Complaint: Back Pain-No Injury Source: Patient Present Illness HPI Patient is a 37-year-old female presented after increased low back pain. Patient had the been having symptoms for the past one week. Patient had recently been seen for similar symptoms. Patient previous workup which included x-rays as well as laboratory testing. Patient denies being . She denies any fever. She had not been having any weight loss. She denies any bowel or bladder dysfunction. Patient had been having worsening pain with movements. She denies any radicular pain. Allergies: Coded Allergies: No Known Allergies (Unverified , 06/15/14) Patient History Past Medical History: see triage record Last Menstrual Period: None Now: No - ( IUD ) : 3 Para: 3 Reviewed Nursing Documentation: PMH: Agreed; PSxH: Agreed Nursing Documentation-PMH Hx Hypertension: Yes Hx Asthma: Yes Review of Systems All Other Systems: negative except mentioned in HPI Physical Exam Vital Signs Date Time Temp Pulse Resp B/P (MAP) Pulse Ox O2 Delivery O2 Flow Rate FiO2 01/11/18 13:28 98.3 79 15 126/81 98 Room Air 98.2 General Appearance: well appearing, no apparent distress, alert, GCS 15 Head: normocephalic, atraumatic ENT: hearing grossly normal, normal voice Neck: full range of motion, supple Respiratory: no respiratory distress, speaking full sentences Cardiovascular #1: normal inspection Musculoskeletal: no calf tenderness Neurologic: normal gait Psychiatric: mood/affect normal Skin: no rash Medical Decision Making Diagnostic Impression: Primary Impression: Lumbar strain ER Course Patient presented for back pain. Differential diagnosis included but was not limited to herniated disc, cauda equina syndrome, abdominal aortic aneurysm, perforated ulcer, spinal epidural abscess, spinal stenosis, lumbar fracture, metastatic lesion, pyelonephritis. Patient has a benign exam and does not appear to require any further imaging or laboratory testing at this time. The patient appears to have muscular back pain. Patient is advised on management. The patient is advised to follow up with primary care doctor in 1-2 days. Patient is advised to return if any worsening condition or if any changes in status that are concerning. This report is dictated with [employer] operator software which may occasionally lead to discrepancies related to use of this software. Last Vital Signs Date Time Temp Pulse Resp B/P (MAP) Pulse Ox O2 Delivery O2 Flow Rate FiO2 01/11/18 13:35 98.2 76 15 126/81 99 Room Air 98.2 Status: improved Disposition: HOME, SELF-CARE Condition: Stable Scripts Hydrocodone Bit/Acetaminophen 5-325* (NORCO 5-325*) 1 Each Tablet 1 TAB ORAL Q6H PRN for For Pain, #20 TAB 0 Refills Prov: Gibson Hassan MD 01/11/18 Lidocaine (Lidocaine) 1 Each Adh..patch 700 MG TP DAILY, #60 PATCH Prov: Gibson Hassan MD 01/11/18 Referrals: NOT CHOSEN IPA/,REFERRING (PCP) Patient Instructions: Back Pain, Adult Additional Instructions: Do [facility] and [place] exercises when pain improves. Follow up with your primary care if pain persist. Return if you develop fever, bowel or bladder dysfunction. Gibson Hassan MD January 11, 2018 14:51
== END 2018-01-11 14:59 | disposition home or self-care (01) ==
LOC: EMR 13:49
DX: S39.012A Strain of muscle, fascia and tendon of lower back, initial encounter (principal); X58.XXXA Exposure to other specified factors, initial encounter; Y92.9 Unspecified place or not applicable; I10 Essential (primary) hypertension; J45.909 Unspecified asthma, uncomplicated
CPT/HCPCS: 96372; 99284

== ENCOUNTER 2019-06-14 18:18 | Inpatient (IN) | payer MEDICAID ==
[~2019-06-14] VITALS: Ht 170.2 cm; Wt 78.0 kg
[~2019-06-14 18:18] MED LIST changes: +LIDOCAINE700 M1 TP
[2019-06-14] MEDS ORDERED: NKM (18:28)
--- NOTE | 2019-06-14 18:40 | Emergency Room Report ---
History of Present Illness General Chief Complaint: Abdominal Pain Source: Patient Present Illness HPI Patient presents with complaints of right lower abdominal pain reports that started this morning she has been having diarrhea as well About 30 minutes prior to arrival her pain had increased significantly and reports that since that time the pain has started to Now decrease She still feels discomfort to that region denies any vomiting denies any fevers denies any fall or trauma denies any dysuria frequency Allergies: Coded Allergies: No Known Allergies (Unverified , 06/15/14) Patient History Past Medical History: see triage record Last Menstrual Period: 05/25/2019 Now: No Reviewed Nursing Documentation: PMH: Agreed; PSxH: Agreed Nursing Documentation-PMH Past Medical History: No History, Except For Hx Hypertension: Yes Hx Asthma: Yes Review of Systems All Other Systems: negative except mentioned in HPI Physical Exam Vital Signs Date Time Temp Pulse Resp B/P (MAP) Pulse Ox O2 Delivery O2 Flow Rate FiO2 06/14/19 18:24 98.2 81 20 140/89 (106) 100 Room Air Sp02 EP Interpretation: reviewed, normal General Appearance: well appearing, no apparent distress Head: normocephalic, atraumatic Eyes: bilateral eye PERRL, bilateral eye EOMI ENT: hearing grossly normal, normal pharynx, TMs + canals normal, uvula midline Neck: full range of motion, supple, no meningismus, no bony tend Respiratory: lungs clear, normal breath sounds, no rhonchi, no respiratory distress, no retraction, no accessory muscle use Cardiovascular #1: normal peripheral pulses, regular rate, rhythm, no edema, no gallop, no JVD, no murmur Gastrointestinal: normal bowel sounds, non tender - Palpation however patient reports her right lower quadrant pain at this time subjectively, soft, no mass, no organomegaly, non-distended, no guarding, no hernia, no pulsatile mass, no rebound Genitourinary: no CVA tenderness Musculoskeletal: normal inspection Neurologic: oriented x3, responsive, educational audiologist III-XII nml as tested, motor strength/ tone normal, sensory intact Psychiatric: mood/affect normal Skin: no rash Lymphatic: normal inspection, no adenopathy Procedures Critical Care Time Critical Care Time 40 minutes for multiple re-evaluations critical findings on work-up, with concern for decompensation and possible requiring surgical intervention not including any procedural time Medical Decision Making Diagnostic Impression: Primary Impression: Acute appendicitis ER Course With the history exam and presentation, multiple differentials considered, including but not limited to appendicitis, gastritis, cholecystitis, diverticulitis Patient had extensive blood work and imaging initiated white blood cell count is elevated Patient CT shows concerning findings Consistent with acute appendicitis patient has further hydration Initiated along with pain control Case is discussed with general surgery and patient requires further inpatient care Labs Test 06/14/19 18:50 06/14/19 18:55 White Blood Count 15.4 K/UL (4.8-10.8) Red Blood Count 4.09 M/UL (4.20-5.40) Hemoglobin 13.2 G/DL (12.0-16.0) Hematocrit 38.4 % (37.0-47.0) Mean Corpuscular Volume 94 FL (80-99) Mean Corpuscular Hemoglobin 32.2 PG (27.0-31.0) Mean Corpuscular Hemoglobin Concent 34.3 G/DL (32.0-36.0) Red Cell Distribution Width 10.8 % (11.6-14.8) Platelet Count 192 K/UL (150-450) Mean Platelet Volume 8.9 FL (6.5-10.1) Neutrophils (%) (Auto) 78.5 % (45.0-75.0) Lymphocytes (%) (Auto) 12.5 % (20.0-45.0) Monocytes (%) (Auto) 7.5 % (1.0-10.0) Eosinophils (%) (Auto) 0.9 % (0.0-3.0) Basophils (%) (Auto) 0.6 % (0.0-2.0) Sodium Level 140 MMOL/L (136-145) Potassium Level 3.5 MMOL/L (3.5-5.1) Chloride Level 104 MMOL/L (98-107) Carbon Dioxide Level 24 MMOL/L (21-32) Anion Gap 12 mmol/L (5-15) Blood Urea Nitrogen 12 mg/dL (7-18) Creatinine 0.7 MG/DL (0.55-1.30) Estimat Glomerular Filtration Rate > 60 mL/min (>60) Glucose Level 83 MG/DL (74-106) Calcium Level 7.9 MG/DL (8.5-10.1) Total Bilirubin 0.4 MG/DL (0.2-1.0) Aspartate Amino Transf (AST/SGOT) 15 U/L (15-37) Alanine Aminotransferase (ALT/SGPT) 20 U/L (12-78) Alkaline Phosphatase 61 U/L (46-116) Total Protein 7.6 G/DL (6.4-8.2) Albumin 3.5 G/DL (3.4-5.0) Globulin 4.1 g/dL Albumin/Globulin Ratio 0.9 (1.0-2.7) Lipase 67 U/L (73-393) Urine Color Pale yellow Urine Appearance Clear Urine pH 6 (4.5-8.0) Urine Specific [place] 1.020 (1.005-1.035) Urine Protein 1+ (NEGATIVE) Urine Glucose (UA) Negative (NEGATIVE) Urine Ketones Negative (NEGATIVE) Urine Blood 4+ (NEGATIVE) Urine Nitrite Negative (NEGATIVE) Urine Bilirubin Negative (NEGATIVE) Urine Urobilinogen Normal MG/DL (0.0-1.0) Urine Leukocyte Esterase 1+ (NEGATIVE) Urine RBC 5-10 /HPF (0 - 2) Urine WBC 2-4 /HPF (0 - 2) Urine Squamous Epithelial Cells Few /LPF (NONE/OCC) Urine Bacteria Few /HPF (NONE) Urine HCG, Qualitative Negative (NEGATIVE) CT/MRI/US Diagnostic Results CT/MRI/US Diagnostic Results : Impression CT abdomen pelvis CT ABDOMEN + PELVIS Without Contrast: The appendix is dilated up to 1.2 cm with periappendiceal fat stranding consistent with acute uncomplicated appendicitis. No perforation or abscess. IUD within the uterus which is transverse in orientation. Correlate for pelvic symptoms. <MYCVCSECTION> Critical Value Communications Last Vital Signs Date Time Temp Pulse Resp B/P (MAP) Pulse Ox O2 Delivery O2 Flow Rate FiO2 06/14/19 18:24 98.2 81 20 140/89 (106) 100 Room Air Status: improved Disposition: ADMITTED INPATIENT Condition: Serious EarlValencia sanchez DO Jun 14, 2019 18:40
[2019-06-14] MEDS ORDERED: Ketorolac 30mg Inj IV ONE (18:45)
--- NOTE | 2019-06-14 19:02 | NUR ---
ED Nurse Note: pt amb with slow guarded gait to brp to obtain urine sample. family with pt. pt relates rlq pain with diarrhea since this am. lungs cta skin warm and dry no active n/v. meds to be given pending urine results. pt to ct scan via w/c.
[2019-06-14 19:09] LABS: BASOPHILS % (AUTO) 0.6 % (0.0-2.0); EOSINOPHILS % (AUTO) 0.9 % (0.0-3.0); HEMATOCRIT 38.4 % (37.0-47.0); HEMOGLOBIN 13.2 G/DL (12.0-16.0); LYMPHOCYTES % (AUTO) 12.5 % (20.0-45.0); MEAN CORPUSCULAR VOLUME 94 FL (80-99); MONOCYTES % (AUTO) 7.5 % (1.0-10.0); NEUTROPHILS % (AUTO) 78.5 % (45.0-75.0); PLATELET COUNT 192 K/UL (150-450); RED BLOOD COUNT 4.09 M/UL (4.20-5.40); RED CELL DISTRIBUTION WIDTH 10.8 % (11.6-14.8); WHITE BLOOD COUNT 15.4 K/UL (4.8-10.8)
[2019-06-14 19:13] LABS: ANION GAP 12 mmol/L (5-15); BLOOD UREA NITROGEN 12 mg/dL (7-18); CALCIUM 7.9 MG/DL (8.5-10.1); CARBON DIOXIDE 24 MMOL/L (21-32); CHLORIDE 104 MMOL/L (98-107); CREATININE 0.7 MG/DL (0.55-1.30); POTASSIUM 3.5 MMOL/L (3.5-5.1); SODIUM 140 MMOL/L (136-145)
[2019-06-14 19:13] LABS: APPEARANCE,URINE CLEAR; BILIRUBIN, URINE NEGATIVE (NEGATIVE); COLOR,URINE PALE YELLOW; GLUCOSE, URINE (UA) NEGATIVE (NEGATIVE); KETONES,URINE NEGATIVE (NEGATIVE); LEUKOCYTE ESTERASE ,URINE 1+ (NEGATIVE); NITRITE,URINE NEGATIVE (NEGATIVE); PH,URINE 6 (4.5-8.0); PROTEIN,URINE 1+ (NEGATIVE); UROBILINOGEN,URINE NORMAL MG/DL (0.0-1.0)
[2019-06-14 19:17] LABS: ALANINE AMINOTRANSFERASE 20 U/L (12-78); ALBUMIN 3.5 G/DL (3.4-5.0); ALBUMIN/GLOBULIN RATIO 0.9 (1.0-2.7); ALKALINE PHOSPHATASE 61 U/L (46-116); ASPARTATE AMINO TRANSFERASE 15 U/L (15-37); BILIRUBIN,TOTAL 0.4 MG/DL (0.2-1.0)
--- NOTE | 2019-06-14 19:23 | NUR ---
ED Nurse Note: pt back from ct scan
[2019-06-14 19:25] VITALS: BP 142/86
--- NOTE | 2019-06-14 19:25 | NUR ---
Handoff from RN. Analgesic and IV fluids commenced as prescribed.
--- NOTE | 2019-06-14 19:35 | Diagnostic Imaging Report ---
Indication: Abdominal pain, right lower abdominal pain since this morning, diarrhea Technique: Spiral acquisitions obtained through the abdomen and pelvis. No oral contrast utilized, per emergency room physician request No IV contrast utilized, per referring physician request.. Multiplanar reconstructions were generated. Total dose length product 957 mGycm. CTDIvol(s) 16 mGy. Dose reduction achieved using automated exposure control Comparison: None Findings: The appendix is enlarged, measuring up to 10 mm in diameter, and there is evidence of inflammation of the periappendiceal fat. No associated fluid collections. No extraluminal gas. No evidence of colonic diverticulosis or diverticulitis. The distal esophagus is unremarkable. The stomach is filled with material. The duodenum is unremarkable. No small bowel distention. There is mild diastasis of the rectus abdominis tendon. No free or loculated intraperitoneal gas or fluid is evident. The lack of IV contrast limits assessment of the solid organs. The liver, gallbladder, bile ducts, pancreas, spleen, adrenals, kidneys are unremarkable. No retroperitoneal or mesenteric mass or adenopathy. No pelvic mass or adenopathy. The uterus is retroverted, contains an intrauterine device which is transversely oriented, tip high in the uterine fundus. Unremarkable ovaries. The included lung bases are clear. The bones are unremarkable Impression: Positive for acute uncomplicated appendicitis Possibly suboptimal position of intrauterine device This agrees with the preliminary interpretation provided overnight by [facility] service. The CT scanner at [facility] is accredited by the [employer] and the scans are performed using protocols designed to limit radiation exposure to as low as reasonably achievable to attain images of sufficient resolution adequate for diagnostic evaluation.
[2019-06-14 21:15] VITALS: BP 140/76
--- NOTE | 2019-06-14 21:54 | NUR ---
ED Nurse Note: Patient complaining of pain in the right lower abdomen. MD informed await prescription.
[2019-06-14] MEDS ORDERED: Morphine Sulfate 4mg/ml Inj (IV USE ONLY) IVP ONE (22:00)
--- NOTE | 2019-06-14 22:19 | NUR ---
ED Nurse Note: Patient positioned supine for comfort. Medications given as prescribed for the return of pain.
--- NOTE | 2019-06-14 22:59 | NUR ---
ER DISCHARGE NOTE: Handoff to Sudhir YEPEZ patient to transfer to 309 bed 2.
[2019-06-14 23:15] VITALS: BP 142/86
--- NOTE | 2019-06-14 23:30 | NUR ---
ED Nurse Note: Patient cleared to be transferred to [facility] bed. Patient A&Ox4. Transported to [facility] bed on [facility]. Patient reports improved pain score. Handover given to RN pre transfer. Report given to Sudhir YEPEZ on arrival to [facility].
--- NOTE | 2019-06-14 23:40 | NUR ---
NURSE NOTES: Patient admitted on 309-1 Admission orders done. Skin is intact. VSS. No SOB noted. 04/04 RLQ pain radiating to the back. Called MD for orders. Noted and carried out. Family at bedside. Call light within reach. Needs attended. in stable condition.
[2019-06-14] MEDS ORDERED: Morphine Sulfate 4mg/ml Inj (IV USE ONLY) IVP PRN (23:45)
[2019-06-15] VITALS (18 sets, daily range): BP systolic 116–187; BP diastolic 69–100
[2019-06-15] MEDS: Morphine Sulfate 2mg/ml Inj(IV/IM USE ONLY) IVP PRN ×6 (03:01→21:23)
[2019-06-15] MEDS: Piperacillin/Tazobactam 3.375 GM in NS 110 ML IVPB SCH ×3 (03:02→17:14)
[2019-06-15 05:33] LABS: BASOPHILS % (AUTO) 1.3 % (0.0-2.0); EOSINOPHILS % (AUTO) 0.8 % (0.0-3.0); HEMATOCRIT 37.4 % (37.0-47.0); LYMPHOCYTES % (AUTO) 15.8 % (20.0-45.0); MEAN CORPUSCULAR VOLUME 94 FL (80-99); MONOCYTES % (AUTO) 6.7 % (1.0-10.0); NEUTROPHILS % (AUTO) 75.4 % (45.0-75.0); PLATELET COUNT 204 K/UL (150-450); RED BLOOD COUNT 3.99 M/UL (4.20-5.40); RED CELL DISTRIBUTION WIDTH 11.2 % (11.6-14.8)
[2019-06-15 06:00] LABS: ANION GAP 8 mmol/L (5-15); BLOOD UREA NITROGEN 10 mg/dL (7-18); CALCIUM 8.7 MG/DL (8.5-10.1); CARBON DIOXIDE 26 MMOL/L (21-32); CHLORIDE 105 MMOL/L (98-107); CREATININE 0.8 MG/DL (0.55-1.30); POTASSIUM 3.7 MMOL/L (3.5-5.1); SODIUM 139 MMOL/L (136-145)
--- NOTE | 2019-06-15 07:30 | NUR ---
NURSE NOTES: Pt lying in bed w/ at bedside, bed in lowest position, and call light within reach. Pt A&Ox4, VSS, and in no apparent distress at this time. IV site intact/asymptomatic w/IVF infusing and skin intact. Pt c/o abdominal pain that radiates to back; will administer pain meds when due. Will continue to monitor.
--- NOTE | 2019-06-15 09:00 | Pre-Procedure Note/Attestation ---
Pre-Procedure Note/Attestation Complete Prior to Procedure Planned Procedure: not applicable Procedure Narrative: laparoscopic appendectomy possible open Indications for Procedure Pre-Operative Diagnosis: acute appendicitis Attestation I attest that I discussed the nature of the procedure; its benefits; risks and complications; and alternatives (and the risks and benefits of such alternatives ), prior to the procedure, with the patient (or the patient's legal motor vehicle field representative). I attest that, if there was a reasonable possibility of needing a blood transfusion, the patient (or the patient's legal motor vehicle field representative) was given the [facility] standardized written summary, pursuant to the [place]rett Reese Blood Safety Act ([place] Health and Safety Code # 1645, as amended). I attest that I re-evaluated the patient just prior to the surgery and that there has been no change in the patient's H&P, except as documented below: Pollo Vazquez Jun 15, 2019 09:00
[2019-06-15] MEDS ORDERED: Bupivacaine w/Epi 0.5% 30ml Vial INJ ONE (09:11)
[2019-06-15] MEDS ORDERED: Rocuronium Bromide 50mg/5ml Inj IV ONE (09:11)
[2019-06-15] MEDS ORDERED: Succinylcholine 20mg/ml 10ml vial ONE (09:11)
[2019-06-15] MEDS ORDERED: Midazolam 2mg/2ml Inj ONE (09:20)
[2019-06-15] MEDS ORDERED: fentaNYL 100 mcg/2 mL IV ONE (09:20)
[2019-06-15] MEDS ORDERED: Ketorolac 30mg Inj ONE (09:20)
[2019-06-15] MEDS ORDERED: Propofol 200mg/20ml IV ONE (09:20)
[2019-06-15] MEDS ORDERED: Lidocaine 1% MPF 10mg/ml 5ml ONE (09:20)
[2019-06-15] MEDS ORDERED: Neostigmine 1mg/ml 10ml Inj ONE (09:30)
[2019-06-15] MEDS ORDERED: LR 1000ml ONE (09:30)
[2019-06-15] MEDS ORDERED: Sterile Water Irrig 1000ml IRRIG ONE (09:30)
--- NOTE | 2019-06-15 09:30 | History and Physical Report ---
DATE OF ADMISSION: 06/14/2019 REASON FOR ADMISSION: Appendicitis. HISTORY OF PRESENT ILLNESS: This is a 38-year-old female, admitted through the emergency room, the patient with lower abdominal pain. The patient also with some diarrhea. The patient with acute onset. Overall with abdominal discomfort, the patient seen and evaluated in the emergency room, was diagnosed with appendicitis and the patient now admitted. PAST MEDICAL HISTORY: Essentially negative. MEDICATIONS: Reviewed. ALLERGIES: Reviewed. SOCIAL HISTORY: Otherwise, negative and noncontributory to the above. PHYSICAL EXAMINATION: GENERAL: A well-developed female, comfortable at present. VITAL SIGNS: Reviewed. Blood pressure 138/85, pulse normal, respiratory rate 18, and saturations 99%. The patient is currently afebrile. HEENT: Negative. NECK: Supple. LUNGS: Clear. CARDIAC: S1, S2. Regular rate and rhythm. ABDOMEN: Right lower quadrant tenderness. EXTREMITIES: No edema. LABORATORY DATA: Reviewed. White cell count is 15, otherwise fairly negative. IMPRESSION: 1. Appendicitis. 2. Leukocytosis due to the above and abdominal pain. RECOMMENDATIONS: Supportive care. Surgical evaluation for appendectomy. IV antibiotics and will follow clinically for further changes and discharge planning. Pan Silva M.D. DR: HUY JOB#: [id number] CC: SHANE
[2019-06-15] MEDS ORDERED: NS Irrig 1000ml IRRIG ONE (09:48)
[2019-06-15] MEDS ORDERED: Glycopyrrolate 0.2mg/ml 1ml Vial ONE (10:10)
[2019-06-15] MEDS ORDERED: LR 1000ml 1,000 ML IVLG SCH (10:17)
--- NOTE | 2019-06-15 10:17 | Anethesia Preoperative Eval ---
Anesthesia Pre-op PMH/ROS General Date of Evaluation: Jun 15, 2019 Time of Evaluation: 09:20 Anesthesiologist: Delia ASA Score: ASA 2 Mallampati Score Class I : Soft palate, uvula, fauces, pillars visible Class II: Soft palate, uvula, fauces visible Class III: Soft palate, base of uvula visible Class IV: Only hard plate visible Mallampati Classification: Class II Surgeon: Kathryn Diagnosis: Acute appendicitis Surgical Procedure: Appendectomy Anesthesia History: none Family History: no anesthesia problems Allergies: Coded Allergies: No Known Allergies (Unverified , 06/15/14) Medications: see eMAR Patient NPO?: Yes NPO Date: Jun 15, 2019 NPO Time: 0000 Past Medical History Cardiovascular: Denies: HTN, CAD, [place], valve dz, arrhythmia, other Pulmonary: Denies: asthma, COPD, [place], other Gastrointestinal/Genitourinary: Reports: GERD; Denies: CRI, ESRD, other Neurologic/Psychiatric: Denies: dementia, CVA, depression/anxiety, TIA, other Endocrine: Denies: DM, hypothyroidism, steroids, other HEENT: Denies: cataract (L), cataract (R), glaucoma, [place] (L), [place] (R), other Hematology/Immune: Reports: anemia - mild; Denies: DVT, bleeding disorder, other Musculoskeletal/Integumentary: Denies: OA, RA, DJD, DDD, edema, other PMH Narrative: as above PSxH Narrative: D&C C section x2 Anesthesia Pre-op Phys. Exam Physician Exam Last Vital Signs Date Time Temp Pulse Resp B/P (MAP) Pulse Ox O2 Delivery O2 Flow Rate FiO2 06/15/19 09:00 Room Air 06/15/19 08:00 97.9 71 18 123/77 (92) 99 Constitutional: NAD Neurologic: CN 2-12 intact Cardiovascular: RRR, no M/R/G Respiratory: CTA Gastrointestinal: other - some tenderness Airway Exam Mallampati Score: Class II MO: limited Neck: flexible ROM: full Teeth: missing Dentures: no upper, no lower Anesthesia Pre-op A/P Labs Hematology Test 06/14/19 18:50 06/15/19 04:55 White Blood Count 15.4 K/UL (4.8-10.8) H 15.0 K/UL (4.8-10.8) H Red Blood Count 4.09 M/UL (4.20-5.40) L 3.99 M/UL (4.20-5.40) L Hemoglobin 13.2 G/DL (12.0-16.0) 13.0 G/DL (12.0-16.0) Hematocrit 38.4 % (37.0-47.0) 37.4 % (37.0-47.0) Mean Corpuscular Volume 94 FL (80-99) 94 FL (80-99) Mean Corpuscular Hemoglobin 32.2 PG (27.0-31.0) H 32.5 PG (27.0-31.0) H Mean Corpuscular Hemoglobin Concent 34.3 G/DL (32.0-36.0) 34.7 G/DL (32.0-36.0) Red Cell Distribution Width 10.8 % (11.6-14.8) L 11.2 % (11.6-14.8) L Platelet Count 192 K/UL (150-450) 204 K/UL (150-450) Mean Platelet Volume 8.9 FL (6.5-10.1) 8.8 FL (6.5-10.1) Neutrophils (%) (Auto) 78.5 % (45.0-75.0) H 75.4 % (45.0-75.0) H Lymphocytes (%) (Auto) 12.5 % (20.0-45.0) L 15.8 % (20.0-45.0) L Monocytes (%) (Auto) 7.5 % (1.0-10.0) 6.7 % (1.0-10.0) Eosinophils (%) (Auto) 0.9 % (0.0-3.0) 0.8 % (0.0-3.0) Basophils (%) (Auto) 0.6 % (0.0-2.0) 1.3 % (0.0-2.0) Coagulation Test 06/15/19 04:55 Prothrombin Time 10.3 SEC (9.30-11.50) Prothromb Time International Ratio 1.0 (0.9-1.1) Activated Partial Thromboplast Time 27 SEC (23-33) Chemistry Test 06/14/19 18:50 06/15/19 04:55 Sodium Level 140 MMOL/L (136-145) 139 MMOL/L (136-145) Potassium Level 3.5 MMOL/L (3.5-5.1) 3.7 MMOL/L (3.5-5.1) Chloride Level 104 MMOL/L (98-107) 105 MMOL/L (98-107) Carbon Dioxide Level 24 MMOL/L (21-32) 26 MMOL/L (21-32) Anion Gap 12 mmol/L (5-15) 8 mmol/L (5-15) Blood Urea Nitrogen 12 mg/dL (7-18) 10 mg/dL (7-18) Creatinine 0.7 MG/DL (0.55-1.30) 0.8 MG/DL (0.55-1.30) Estimat Glomerular Filtration Rate > 60 mL/min (>60) > 60 mL/min (>60) Glucose Level 83 MG/DL (74-106) 94 MG/DL (74-106) Calcium Level 7.9 MG/DL (8.5-10.1) L 8.7 MG/DL (8.5-10.1) Total Bilirubin 0.4 MG/DL (0.2-1.0) Aspartate Amino Transf (AST/SGOT) 15 U/L (15-37) Alanine Aminotransferase (ALT/SGPT) 20 U/L (12-78) Alkaline Phosphatase 61 U/L (46-116) Total Protein 7.6 G/DL (6.4-8.2) Albumin 3.5 G/DL (3.4-5.0) Globulin 4.1 g/dL Albumin/Globulin Ratio 0.9 (1.0-2.7) L Lipase 67 U/L (73-393) L Urine Test Test 06/14/19 18:55 Urine HCG, Qualitative Negative (NEGATIVE) Risk Assessment & Plan Assessment: ASA 2 E Plan: GA with ETT Status Change Before Surgery: No Pre-Antibiotics Drug: Zosin 3,375 Given Within 1 Hr of Incision: Yes Time Given: 10:50 Ric Lin MD Jun 15, 2019 10:17
[2019-06-15] MEDS ORDERED: DiphenhydrAMINE 50mg/ml Inj IVP PRN (10:30)
[2019-06-15] MEDS ORDERED: Midazolam 2mg/2ml Inj IVP PRN (10:30)
[2019-06-15] MEDS ORDERED: Ketorolac 30mg Inj IV PRN (10:30)
[2019-06-15] MEDS ORDERED: Meperidine 50mg/ml Inj(FOR RIGORS ONLY) IV PRN (10:30)
[2019-06-15] MEDS ORDERED: Metoclopramide 10mg/2ml Inj IVP PRN (10:30)
--- NOTE | 2019-06-15 11:00 | Immediate Post-Op Evaluation ---
Immediate Post-Op Evalulation Immediate Post-Op Evalulation Procedure: Laparoscopic appendectomy Date of Evaluation: Jun 15, 2019 Time of Evaluation: 10:59 IV Fluids: 800 Blood Products: none Estimated Blood Loss: min Urinary Output: none Blood Pressure Systolic: 134 Blood Pressure Diastolic: 76 Pulse Rate: 68 Respiratory Rate: 18 O2 Sat by Pulse Oximetry: 99 Temperature (Fahrenheit): 97.8 Pain Score (1-10): 2 Nausea: No Vomiting: No Complications none Patient Status: reacts, patent, extubated, none Hydration Status: adequate Ric Lin MD Jun 15, 2019 10:59
--- NOTE | 2019-06-15 11:27 | Consultation ---
History of Present Illness General Date patient seen: Jun 15, 2019 Reason for Hospitalization: Abdominal Pain Present Illness HPI 38-year-old female presented to [facility] emergency department complaining of worsening abdominal pain x1 day. Patient states that she was doing well 2 days ago was at a concert without any issues. Yesterday morning began to have acute abdominal discomfort in the umbilical region now since his radius the right lower quadrant become worse. No nausea or vomiting. Normal bowel movements. Pain 8 out of 10 right lower quadrant cramping. In ED noted to have leukocytosis and CT scan consistent with acute appendicitis. Surgery called to evaluate patient admitted for further care and management. Allergies: Coded Allergies: No Known Allergies (Unverified , 06/15/14) Medication History Discontinued Medications Hydrochlorothiazide* (Hydrochlorothiazide*), 12.5 MG ORAL DAILY Discontinued Reason: Therapy completed Hydrocodone Bit/Acetaminophen 5-325* ([place] 5-325*), 1 TAB ORAL Q6H PRN for For Pain Discontinued Reason: Therapy completed Hydrocodone Bit/Acetaminophen 5-325* ([place] 5-325*), 1 TAB ORAL Q6H PRN for For Pain Discontinued Reason: Therapy completed Hydrocodone/Acetaminophen 5-325* (Hydrocodone/Acetaminophen 5-325*), 1 TAB ORAL Q6H PRN for For Pain Discontinued Reason: Therapy completed Ibuprofen* (Motrin*), 600 MG ORAL Q8H PRN for For Pain Discontinued Reason: Therapy completed Ibuprofen* (Motrin*), 600 MG ORAL Q6H PRN for For Pain Discontinued Reason: Therapy completed Lidocaine (Lidocaine), 700 MG TP DAILY Discontinued Reason: Therapy completed Lidocaine HCl 2% Viscous (Lidocaine HCl 2% Viscous), 2 ML ORAL QID Discontinued Reason: Therapy completed Methocarbamol* (Robaxin*), 500 MG PO TID Discontinued Reason: Therapy completed No Known Medications* (NKM - No Known Medications*), 0 ., (Reported) Discontinued Reason: Therapy completed Oxycodone Hcl/Acetaminophen 7.5-325 Mg (Percocet 7.5-325 Mg Tablet), 1 TAB ORAL Q6H PRN for For Pain Discontinued Reason: Therapy completed Patient History History Provided By: Patient, Family Member Healthcare decision maker Resuscitation status Full Code Advanced Directive on File Past Medical/Surgical History Past Medical/Surgical History: (1) (2) Abdominal pain (3) Syncope (4) Hypertension (5) Near syncope (6) Headache (7) Dental infection (8) Acute pulpitis (9) Medication refill (10) Pain, dental (11) Lumbar strain (12) Acute appendicitis Review of Systems Review of Symptoms General ROS: no weight loss or fever Psychological ROS: no depression or mood changes, no memory loss Ophthalmic ROS: no visual changes or eye irritation ENT ROS: no nasal congestion, hearing loss, dizziness Allergy and Immunology ROS: no allergic symptoms or urticaria Hematological and Lymphatic ROS: no swollen glands, unusual bleeding or bruising Endocrine ROS: no polyuria, polydipsia, weight changes, temperature intolerance Respiratory ROS: no cough, shortness of breath, or wheezing Cardiovascular ROS: no chest pain or dyspnea on exertion Gastrointestinal ROS: abdominal pain, bright red blood in stool. Musculoskeletal ROS: no myalgias or arthralgias Neurological ROS: no TIA or stroke symptoms Dermatological ROS: no new or changing skin lesions, rashes or pruritis Physical Exam Physical Exam General appearance: alert, cooperative, no distress, appears stated age Head: Normocephalic, without obvious abnormality, atraumatic Eyes: conjunctivae/corneas clear. PERRL, EOM's intact. Fundi benign Throat: Lips, mucosa, and tongue normal. Teeth and gums normal Neck: supple, symmetrical, trachea midline, no adenopathy, thyroid: not enlarged, symmetric, no tenderness/mass/nodules, no carotid bruit and no JVD Lungs: clear to auscultation bilaterally Heart: regular rate and rhythm, S1, S2 normal, no murmur, click, rub or gallop Abdomen: soft, rlq-tender. Bowel sounds normal. No masses, no organomegaly Extremities: extremities normal, atraumatic, no cyanosis or edema Pulses: 2+ and symmetric Skin: Skin color, texture, turgor normal. No rashes or lesions Neurologic: Grossly normal Last 24 Hour Vital Signs Date Time Temp Pulse Resp B/P (MAP) Pulse Ox O2 Delivery O2 Flow Rate FiO2 06/15/19 11:15 66 18 168/88 100 Simple Mask 6 06/15/19 11:05 63 12 163/85 100 Simple Mask 6 06/15/19 11:00 60 12 146/87 100 Simple Mask 6 06/15/19 10:59 68 18 99 06/15/19 10:56 97.8 62 12 120/71 100 Simple Mask 6 06/15/19 09:00 Room Air 06/15/19 08:00 97.9 71 18 123/77 (92) 99 06/15/19 04:00 98.0 83 18 141/87 (105) 100 06/15/19 00:00 98.2 88 18 138/85 (102) 99 06/14/19 23:47 Room Air 06/14/19 23:30 97.5 89 18 138/78 100 Room Air 06/14/19 23:15 98.2 86 20 142/86 100 Room Air 06/14/19 21:15 98.2 86 18 140/76 100 Room Air 06/14/19 19:25 98.2 86 20 142/86 100 Room Air 06/14/19 19:05 81 20 Room Air 06/14/19 18:24 98.2 81 20 140/89 (106) 100 Room Air Intake and Output 06/14/19 06/15/19 19:00 07:00 Intake Total 0 ml Balance 0 ml Intake Oral 0 ml # Voids 2 Laboratory Tests Test 06/14/19 18:50 06/14/19 18:55 06/15/19 04:55 White Blood Count 15.4 K/UL (4.8-10.8) H 15.0 K/UL (4.8-10.8) H Red Blood Count 4.09 M/UL (4.20-5.40) L 3.99 M/UL (4.20-5.40) L Hemoglobin 13.2 G/DL (12.0-16.0) 13.0 G/DL (12.0-16.0) Hematocrit 38.4 % (37.0-47.0) 37.4 % (37.0-47.0) Mean Corpuscular Volume 94 FL (80-99) 94 FL (80-99) Mean Corpuscular Hemoglobin 32.2 PG (27.0-31.0) H 32.5 PG (27.0-31.0) H Mean Corpuscular Hemoglobin Concent 34.3 G/DL (32.0-36.0) 34.7 G/DL (32.0-36.0) Red Cell Distribution Width 10.8 % (11.6-14.8) L 11.2 % (11.6-14.8) L Platelet Count 192 K/UL (150-450) 204 K/UL (150-450) Mean Platelet Volume 8.9 FL (6.5-10.1) 8.8 FL (6.5-10.1) Neutrophils (%) (Auto) 78.5 % (45.0-75.0) H 75.4 % (45.0-75.0) H Lymphocytes (%) (Auto) 12.5 % (20.0-45.0) L 15.8 % (20.0-45.0) L Monocytes (%) (Auto) 7.5 % (1.0-10.0) 6.7 % (1.0-10.0) Eosinophils (%) (Auto) 0.9 % (0.0-3.0) 0.8 % (0.0-3.0) Basophils (%) (Auto) 0.6 % (0.0-2.0) 1.3 % (0.0-2.0) Sodium Level 140 MMOL/L (136-145) 139 MMOL/L (136-145) Potassium Level 3.5 MMOL/L (3.5-5.1) 3.7 MMOL/L (3.5-5.1) Chloride Level 104 MMOL/L (98-107) 105 MMOL/L (98-107) Carbon Dioxide Level 24 MMOL/L (21-32) 26 MMOL/L (21-32) Anion Gap 12 mmol/L (5-15) 8 mmol/L (5-15) Blood Urea Nitrogen 12 mg/dL (7-18) 10 mg/dL (7-18) Creatinine 0.7 MG/DL (0.55-1.30) 0.8 MG/DL (0.55-1.30) Estimat Glomerular Filtration Rate > 60 mL/min (>60) > 60 mL/min (>60) Glucose Level 83 MG/DL (74-106) 94 MG/DL (74-106) Calcium Level 7.9 MG/DL (8.5-10.1) L 8.7 MG/DL (8.5-10.1) Total Bilirubin 0.4 MG/DL (0.2-1.0) Aspartate Amino Transf (AST/SGOT) 15 U/L (15-37) Alanine Aminotransferase (ALT/SGPT) 20 U/L (12-78) Alkaline Phosphatase 61 U/L (46-116) Total Protein 7.6 G/DL (6.4-8.2) Albumin 3.5 G/DL (3.4-5.0) Globulin 4.1 g/dL Albumin/Globulin Ratio 0.9 (1.0-2.7) L Lipase 67 U/L (73-393) L Urine Color Pale yellow Urine Appearance Clear Urine pH 6 (4.5-8.0) Urine Specific [place] 1.020 (1.005-1.035) Urine Protein 1+ (NEGATIVE) H Urine Glucose (UA) Negative (NEGATIVE) Urine Ketones Negative (NEGATIVE) Urine Blood 4+ (NEGATIVE) H Urine Nitrite Negative (NEGATIVE) Urine Bilirubin Negative (NEGATIVE) Urine Urobilinogen Normal MG/DL (0.0-1.0) Urine Leukocyte Esterase 1+ (NEGATIVE) H Urine RBC 5-10 /HPF (0 - 2) H Urine WBC 2-4 /HPF (0 - 2) Urine Squamous Epithelial Cells Few /LPF (NONE/OCC) Urine Bacteria Few /HPF (NONE) Urine HCG, Qualitative Negative (NEGATIVE) Prothrombin Time 10.3 SEC (9.30-11.50) Prothromb Time International Ratio 1.0 (0.9-1.1) Activated Partial Thromboplast Time 27 SEC (23-33) Height (Feet): 5 Height (Inches): 7.00 Weight (Pounds): 172 Medications Current Medications Medications (Trade) Dose Ordered Sig/Mary Route PRN Reason Start Time Stop Time Status Last Admin Dose Admin Diphenhydramine HCl (Benadryl) 25 mg Q15M PRN IVP Itching 06/15/19 10:30 06/15/19 18:30 Ketorolac Tromethamine (Toradol 30mg) 30 mg Q1H PRN IV Severe Breakthru Pain (>7) 06/15/19 10:30 06/15/19 18:30 Lactated Ringer's 1,000 ml @ 10 mls/hr Q24H IVLG 06/15/19 10:17 06/15/19 12:16 Meperidine HCl (Demerol) 25 mg Q15M PRN IV chills 06/15/19 10:30 06/15/19 18:30 Metoclopramide HCl (Reglan) 10 mg Q1H PRN IVP Nausea & Vomiting 06/15/19 10:30 06/15/19 18:30 Midazolam HCl (Versed 2mg/2ml vial) 1 mg Q15M PRN IVP For Anxiety 06/15/19 10:30 06/15/19 18:30 Morphine Sulfate (Morphine Sulfate) 2 mg EVERY 2 HOURS PRN IVP For Pain 06/15/19 01:00 06/22/19 00:59 06/15/19 06:16 Ondansetron HCl (Zofran) 4 mg Q6H PRN IVP Nausea & Vomiting 06/15/19 01:00 07/15/19 00:59 Piperacillin Sod/ Tazobactam Sod 3.375 gm/Sodium Chloride 110 ml @ 27.5 mls/hr Q8H IVPB 06/15/19 02:00 06/22/19 01:59 06/15/19 03:02 Sodium Chloride 1,000 ml @ 100 mls/hr Q10H IV 06/15/19 08:45 07/15/19 08:44 06/15/19 08:53 Assessment/Plan Problem List: (1) Acute appendicitis Assessment & Plan: 38-year-old female with acute uncomplicated appendicitis. Afebrile, hemodynamic stable, leukocytosis, CT scan as below. Exam consistent with right lower quadrant focal tenderness N.p.o. IV fluids IV antibiotics Consent To OR today for lap scopic versus open appendectomy ICD Codes: K35.80 - Unspecified acute appendicitis SNOMED: [id number] Pollo Vazquez Jun 15, 2019 11:27
--- NOTE | 2019-06-15 11:28 | Brief Operative Note ---
Immediate Post Operative Note Operative Note Pre-op Diagnosis: acute appendicitis Procedure: lap appy Post-op Diagnosis: same as pre-op Surgeon: keri Anesthesiologist: liang Anesthesia: general, local Specimen: yes Complications: none Condition: stable Fluids: see records Estimated Blood Loss: minimal Drains: none Implant(s) used?: No Pollo Vazquez Jun 15, 2019 11:27
[2019-06-15] MEDS ORDERED: HYDROcodone/Acetamin 5/325 tab ORAL PRN (11:30)
[2019-06-15] MEDS ORDERED: Milk of Magnesia 30ml Ud ORAL PRN (11:30)
[2019-06-15] MEDS ORDERED: HYDROcodone/Acetamin 10/325 tab ORAL PRN (11:30)
[2019-06-15] MEDS ORDERED: Labetalol 5mg/ml 20ml vial IV SCH (11:45)
[2019-06-15] MEDS ORDERED: Labetalol 5mg/ml 20ml vial IV ONE (11:46)
--- NOTE | 2019-06-15 12:30 | NUR ---
NURSE NOTES: Pt returned to unit from PACU via hospital bed w/family at bedside. Pt A&Ox4; VSS; on 2L NC; and in no apparent distress. IV site intact/asymptomatic; bowel sounds hypoactive on auscultation; and surgical lap sites C/D/I. Will continue to monitor.
--- NOTE | 2019-06-15 14:59 | Operative Note - PDOC ---
Operative Note Operative Note Date of Operation/Procedure: Jun 15, 2019 Pre-op Diagnosis: Acute Appendicitis Procedure: Laparoscopic Appendectomy Post-op Diagnosis: same as pre-op Surgeon: Pollo Vazquez MD Anesthesiologist: Jaime Lin MD Anesthesia: general, local Specimen: yes Complications: none Condition: stable Fluids: see records Estimated Blood Loss: minimal Drains: none Implant(s) used?: No Indications for Procedure This is a 38-year-old female who presented to the emerge department [facility] complaining of acute worsening abdominal pain. Please refer to consult note for details. CT consistent with acute appendicitis. Surgery indicating recommended. Risk benefits alternatives discussed patient in detail expressed understanding and consented surgery. Description of Procedure The patient was taken to operating room, placed on operating table in the supine position. General anesthesia was induced. no Layne catheter was inserted given patient voided prior and preoperative antibiotics were given. All bony prominences were well padded with gel pads. Appropriate time-out was taken identifying the patient, the procedure, the operating room staff, surgical staff , and anesthesia staff. The abdomen was then prepped and draped in sterile surgical fashion. We began by making an incision in natural skin line at the umbilicus given patient had prior umbilical hernia. Incision was taken down to the fascia and hernia noted. Bravo port was inserted under direct vision through hernia and balloon insufflated. The abdomen was then insufflated with carbon dioxide to a pressure of 12 to 15 mmHg. The patient tolerated insufflation well. No injuries from the initial trocar placement was noted. Under direct visualization, a 5-mm trocar was inserted above the symphysis pubis just around the natural hairline followed by a 10-mm trocar in the left lower quadrant lateral to rectus muscle. Care was taken to avoid injury to the bladder or inferior epigastric vessels. The table was then placed in the Trendelenburg position with the right side elevated. Cecum was gently grasped with endoscopic forceps and pulled towards the left upper quadrant. Atraumatic grasper was then inserted and the omentum was dissected away until the appendix was identified. The appendix was then grasped and elevated. It was noted to be inflamed, but not perforated. Endoscopic linear cutting stapler was then inserted and then used to divide the appendix by stapling the base of the appendix and the mesoappendix. Laparoscopic clips were used to help obtain hemostasis. The appendix was then withdrawn from the abdomen in an endoscopic retrieval bag. Secondary trocars were removed under direct vision. No bleeding was noted. The laparoscope was then withdrawn and the lateral trocar removed. The abdomen was allowed to collapse. The umbilical and left lateral port fascia was closed with a figure-of-8 Vicryl suture. All skin incisions were then closed with a 4-0 Monocryl subcuticular suture followed by dressings. The patient tolerated the procedure well and was taken to postanesthesia care unit in stable condition. Sponge, needle and instrument counts were correct at the end of the case. Pollo Vazquez Jun 15, 2019 14:59
[2019-06-15] MEDS: Docusate 100mg cap ORAL SCH (17:16)
--- NOTE | 2019-06-15 19:18 | NUR ---
HAND-OFF: Report given to LUCHO Chin.
--- NOTE | 2019-06-15 19:30 | NUR ---
nurse's notes: received patient awake, alert and oriented x 4; watching daughter's volleyball game via smartphone; admits to 7/10 mid abdominal pain; education and plan of care for pain management discussed with patient who verbalized understanding and agreement; VSS; 3 lap sites noted with derma guerra and steri-strips; continues to be CDI. no other complaints received. will continue to monitor.
--- NOTE | 2019-06-15 20:10 | NUR ---
CASE MANAGEMENT: REVIEW 38Y/FEMALE PRESENTED TO ED FROM HOME CC: RLQ ABD PAIN SI: ACUTE APPENDICITIS APPENDECTOMY 06/15 T 98.2 HR 81 RR 20 BP 142/86 SAT 100% ROOM AIR WBC 15.4 LIPASE 67 IS: TORADOL IV X1 NS IVF BOLUS X1 ZOFRAN IV X1 MORPHINE IV X1 NPO PATIENT ADMITTED TO MED/SURG UNIT 06/14/2019 DCP: PATIENT IS FROM HOME
[2019-06-16] VITALS: BP 118/73
[2019-06-16] MEDS: Piperacillin/Tazobactam 3.375 GM in NS 110 ML IVPB SCH (01:09)
[2019-06-16] MEDS: Morphine Sulfate 2mg/ml Inj(IV/IM USE ONLY) IVP PRN ×3 (02:20→06:37)
[2019-06-16 04:00] VITALS: BP 137/80
--- NOTE | 2019-06-16 06:44 | NUR ---
nurse's notes: patient still c/o severe pain relieved only with IV morphine; pain mostly centered on her belly button; was observed to be crying and moaning; per patient " My pain is worst than before i came!", reassurance given; unable to transition patient to oral narcotics due to current pain level as orals does not relieve patient of her pain; encouraged patient to increase activity, starting with sitting up on a chair and if able to ambulate as tolerated; patient and both understood teaching. will continue to monitor.
--- NOTE | 2019-06-16 07:30 | NUR ---
NURSE NOTES: Pt lying in bed w/bed in lowest position and call light within reach. Pt A&Ox4, VSS, and c/o 5/10 abdominal pain. IV site intact/asymptomatic w/IV abx infusing; surgical steri-strips x 3 C/D/I; and hypoactive bowel sounds auscultated on assessment. Will continue to monitor.
[2019-06-16 07:53] VITALS: BP 166/83
--- NOTE | 2019-06-16 08:20 | General Progress Note ---
Assessment/Plan Assessment/Plan: appendicitis s/p appy abdominal pain PLAN dc per surgery post op care monitor for change advance diet impression, plan, and exam edited and reviewed in detail care discussed with RN Subjective Allergies: Coded Allergies: No Known Allergies (Unverified , 06/15/14) Subjective post appy Objective Last 24 Hour Vital Signs Date Time Temp Pulse Resp B/P (MAP) Pulse Ox O2 Delivery O2 Flow Rate FiO2 06/16/19 07:53 98.1 62 18 166/83 (110) 100 06/16/19 04:00 98.2 64 17 137/80 (99) 99 06/16/19 00:00 98.5 64 18 118/73 (88) 100 06/15/19 21:00 Room Air 06/15/19 20:00 98.5 78 19 157/89 (111) 100 06/15/19 16:00 98.2 73 18 116/69 (85) 97 06/15/19 15:00 98.2 61 18 166/97 (120) 97 06/15/19 14:28 163/97 06/15/19 14:00 97.1 60 18 163/97 (119) 100 06/15/19 13:00 97.1 80 18 149/89 (109) 100 06/15/19 12:30 97.5 68 18 144/94 (111) 100 06/15/19 12:15 97.3 66 12 129/80 100 Nasal Cannula 3 06/15/19 12:10 64 16 156/87 100 Nasal Cannula 3 06/15/19 12:01 97.3 06/15/19 11:55 64 16 169/100 100 Nasal Cannula 3 06/15/19 11:48 58 187/93 06/15/19 11:40 56 16 187/93 100 Nasal Cannula 3 06/15/19 11:25 64 16 171/92 100 Nasal Cannula 3 06/15/19 11:15 66 18 168/88 100 Simple Mask 6 06/15/19 11:05 63 12 163/85 100 Simple Mask 6 06/15/19 11:00 60 12 146/87 100 Simple Mask 6 06/15/19 10:59 68 18 99 06/15/19 10:56 97.8 62 12 120/71 100 Simple Mask 6 06/15/19 09:00 Room Air Intake and Output 06/15/19 06/16/19 19:00 07:00 Intake Total 1905.0 ml 4260.0 ml Output Total 10 ml Balance 1895.0 ml 4260.0 ml Intake Oral 300 ml 500 ml IV Total 1605.0 ml 3760.0 ml Output Estimated Blood Loss 10 ml # Voids 4 3 Height (Feet): 5 Height (Inches): 7.00 Weight (Pounds): 172 Objective WDWN NAD clear breath sounds bilaterally without rhonchi or wheeze [id number] without MRG NABS mildly tender no CCE nonfocal Pan Silva MD Jun 16, 2019 08:20
[2019-06-16] MEDS: Docusate 100mg cap ORAL SCH (08:23)
[2019-06-16] MEDS ORDERED: NS 500ML ONE (10:31)
--- NOTE | 2019-06-16 10:45 | NUR ---
NURSE NOTES: Escorted pt downstairs via w/c w/ at her side and all belongings accounted for. Provided pt w/discharge summary, Dr. Vazquez's post-op care instructions, and home meds; provided instruction on how to take meds. IV S/L and ID wristband removed prior to D/C. Pt transported home in 's vehicle in stable condition.
[2019-06-16 13:41] VITALS: BP 156/72
--- NOTE | 2019-06-16 13:41 | 48 Hour Post Anesthesia Eval ---
Post Anesthesia Evaluation Procedure: Laparoscopic appendectomy Date of Evaluation: Jun 16, 2019 Time of Evaluation: 09:10 Blood Pressure Systolic: 156 0: 72 Pulse Rate: 68 Respiratory Rate: 20 Temperature (Fahrenheit): 97.6 O2 Sat by Pulse Oximetry: 98 Airway: patent Nausea: No Vomiting: No Pain Intensity: 2 Hydration Status: adequate Cardiopulmonary Status: stable Mental Status/LOC: patient returned to baseline Follow-up Care/Observations: n/a Post-Anesthesia Complications: none Follow-up care needed: ready to discharge Ric Lin MD Jun 16, 2019 13:41
--- NOTE | 2019-06-17 08:57 | Discharge Summary ---
Discharge Summary Discharge Summary _ DATE OF ADMISSION: 06/14/2019 DATE OF DISCHARGE: 06/16/2019 DISCHARGED BY: Dr. Silva REASON FOR ADMISSION: 38 years old female presented to emergency room with lower abdominal pain and diarrhea. Upon evaluation laboratory work-up revealed leukocytosis WBC 15.4. Stable electrolytes and renal parameters. Urinalysis revealed no evidence of UTI. Urine test was negative. CT of the abdomen and pelvis revealed acute uncomplicated appendicitis . Patient admitted for surgical intervention. CONSULTANTS: surgery Dr. Vazquez [facility]: Patient admitted to medical surgical floor. Patient was kept n.p.o. , on IV fluids and broad spectrum IV antibiotic. Surgeon seen and evaluated patient. After discussion with patient regarding the need for surgery, involved risks and nature of procedure, patient consented to surgery. Patient subsequently undergone on 06/15 laparoscopic appendectomy Patient tolerated surgery well. Course of recovery was uneventful. Pathology of appendix revealed acute appendicitis. No evidence of malignancy. Patient slowly started on diet Pain management was addressed, and pain was controlled. Ambulation was encouraged. Incentive spirometry provided while in the bed. Bowel regimen instituted. Patient clinically stabilized :tolerated diet, laparoscopic incisions clean, no fevers, remained hemodynamically stable, ambulated, voided freely, pain controlled. Patient was stable for discharge home. Outpatient follow-up with surgeon in clinic as advised by surgeon. FINAL DIAGNOSES: Acute appendicitis Status post laparoscopic appendectomy DISCHARGE MEDICATIONS: See Medication Reconciliation list. DISCHARGE INSTRUCTIONS: Patient was discharged home . Follow up with primary care provider in one week and with surgeon as advised by surgeon. I have been assigned to dictate discharge summary for this account. I was not involved in the patient's management. Dorothy Cisneros NP Jun 17, 2019 08:56
== END 2019-06-16 10:32 | disposition home or self-care (01) | DRG 234 ==
LOC: EMR 20:22 → 3E 21:50 → EDBEDREQ 22:05
PROC: 0DTJ4ZZ Resection of Appendix, Percutaneous Endoscopic Approach (ICD-10-PCS; principal; 2019-06-15 09:30)
DX: K35.80 Unspecified acute appendicitis (principal)
CPT/HCPCS: 36415; 74176; 80048; 80053; 81003; 81025; 83690; 85025; 85610; 85730; 94003; 94150; 96361; 96374; 96375; 99291; J2250; J2405; J2710; J7030